=== PATIENT | female | born 1995 | race Caucasian/White ===

== ENCOUNTER → 2016-12-29 | Outpatient (CLI) | payer BC ==
--- OUTSIDE RECORDS SUMMARY | 2016-12-29 15:05 | XMS REPORT | Clinical Summary ---
Author Author User, [employer] Organization Belkis Piña DO, FACP Address Unknown Phone Allergies, Adverse Reactions, Alerts Allergy Name Reaction Description Start Date Severity Status Provider BACTRIM Critical Active Belkis Piña Conditions or Problems Problem Name Problem Code Onset Date Status Entry Date Provider Comment Standard Description Annotate HEMATOCHEZIA 578.1 Correction Belkis Piña Blood in stool RECTAL FISSURE 565.0 Active Belkis Piña Anal fissure ABDOMINAL PAIN, RIGHT UPPER QUADRANT 789.01 Active Belkis Piña Abdominal pain, right upper quadrant ACNE VULGARIS, FACIAL 706.1 Active Belkis Piña Other acne WELL WOMAN V70.0 Active Belkis Piña Routine general medical examination at a health care facility DYSMENORRHEA 625.3 Active Belkis Piña Dysmenorrhea Medication List Medication Instructions Start Date Stop Date Generic Name NDC Status Provider Patient Instruction PROVERA 10 MG TAB 1 po daily for 8 days MEDROXYPROGESTERONE ACETATE 40843043600 Active Belkis Piña SPRINTEC 28 0.25-35 MG-MCG TABS 1 po daily NORGESTIMATE-ETH ESTRADIOL 22828914000 Active Belkis Piña SEASONIQUE 0.15-0.03 &0.01 MG TABS 1 po daily at same time each day LEVONORGEST-ETH ESTRAD - 29607693071 No Longer Active Belkis Piña AVAR CLEANSER 10-5 % EMUL apply to affected area once daily SULFACETAMIDE SODIUM-SULFUR 55093458479 Active Harriett Bocanegra Vital Signs Date Name Value Unit Range Description blood pressure, diastolic - 8462-4 68 mm[Hg] BP martino blood pressure, systolic - 8480-6 110 mm[Hg] BP sys pulse rate E&M - 8867-4 66 /min Heart rate respiratory rate E&M - 9279-1 14 /min Resp rate weight E&M - 3141-9 148 [lb_av] Weight Measured blood pressure, diastolic - 8462-4 75 mm[Hg] BP martino blood pressure, systolic - 8480-6 138 mm[Hg] BP sys pulse rate E&M - 8867-4 78 /min Heart rate respiratory rate E&M - 9279-1 14 /min Resp rate temperature E&M 98.6 [degF] Body temperature weight E&M - 3141-9 144 [lb_av] Weight Measured blood pressure, diastolic - 8462-4 70 mm[Hg] BP martino blood pressure, systolic - 8480-6 128 mm[Hg] BP sys pulse rate E&M - 8867-4 64 /min Heart rate respiratory rate E&M - 9279-1 14 /min Resp rate temperature E&M 98.6 [degF] Body temperature weight E&M - 3141-9 142 [lb_av] Weight Measured Encounters Code Encounter Date Provider Facility CPT-07192 Ofc Vst, Est Level III 19:24:37 CDT Belkis Piña DO, FACP CPT-22502 Ofc Vst, New Level III 20:50:39 CDT Belkis Piña DO, CHARLINE Procedures Code Procedure Name Date Entry Date Standard Description CPT-38710 Preventive, Est, (18-39) 12:21:46 CDT
--- NOTE | 2016-12-29 19:57 | Diagnostic Imaging Report ---
OB ultrasound. INDICATION: survey. FINDINGS: There are no previous exams available for comparison. There is a single live fetus is cephalic presentation. heart motion is noted and a rate of 147 bpm is recorded. There are no abnormalities identified. The growth parameters are fairly uniform. The growth parameters are as follows: BPD: 4.33, 19 weeks 1 day. Head circumference: 17.15, 19 weeks 6 days. Abdominal circumference: 14.87, 20 weeks 1 day. Femur length: 2.99, 19 weeks 2 days. The estimated weight is 307 g +/- 45 g. The LMP percentile is 17%. The AUA percentile is 44% Placenta is posterior and along the uterine body on the right. There is no sign of a previa. The amniotic fluid volume is within normal limits. The cervix is identified and measures 3.4 cm in length. IMPRESSION: 1. There is a single live fetus of approximately 19 weeks 5 days gestation +/- 1.5 weeks. EDC is May 20, 2017. 2. There are no abnormalities identified. 3. The growth parameters are fairly uniform. Dictated by: Dictated on workstation # [id number]
== END ==
LOC: RAD 15:02
PROVIDERS: ATTEND Obstetrics & Gynecology
DX: Z36 Encounter for antenatal screening of mother (principal)
CPT/HCPCS: 76805

== ENCOUNTER 2017-05-25 06:43 | Inpatient (IN) | payer BC, MEDICAID ==
[2017-05-25] VITALS (67 sets, daily range): BP systolic 105–156; BP diastolic 61–110
[~2017-05-25] VITALS: Ht 167.6 cm; Wt 83.9 kg
[2017-05-25] MEDS ORDERED: MINERAL OIL CONCENTRATE 99.9% 15 ML UDC TOP PRN (07:00)
[2017-05-25 07:02] LABS: BILIRUBIN,URINE NEGATIVE (NEGATIVE); KETONES,URINE NEGATIVE (NEGATIVE); LEUKOCYTE ESTERASE ,URINE 2+ (NEGATIVE); NITRITE,URINE NEGATIVE (NEGATIVE); PH,URINE 7 (5-9); PROTEIN,URINE NEGATIVE (NEGATIVE); UROBILINOGEN,URINE NORMAL (NORMAL)
[2017-05-25 07:30] LABS: BASOPHILS % (AUTO) 0 % (0-10); EOSINOPHILS # (AUTO) 0.1 10^3/uL (0.0-0.3); EOSINOPHILS % (AUTO) 1 % (0-10); LYMPHOCYTES # (AUTO) 1.9 X 10^3 (1.0-4.0); LYMPHOCYTES % (AUTO) 16 % (12-44); MEAN CORPUSCULAR HEMOGLOBIN 33 PG (25-34); MEAN CORPUSCULAR HGB CONC 34 G/DL (32-36); MEAN CORPUSCULAR VOLUME 98 FL (80-99); MEAN PLATELET VOLUME 10.8 FL (7.4-10.4); MONOCYTES # (AUTO) 0.9 X 10^3 (0.0-1.0); MONOCYTES % (AUTO) 7 % (0-12); NEUTROPHILS # (AUTO) 9.1 X 10^3 (1.8-7.8); NEUTROPHILS % (AUTO) 76 % (42-75); PLATELET COUNT 238 10^3/uL (130-400); RED BLOOD COUNT 3.67 10^6/uL (4.35-5.85); RED CELL DISTRIBUTION WIDTH 12.3 % (10.0-14.5); WHITE BLOOD COUNT 12.1 10^3/uL (4.3-11.0)
[2017-05-25] MEDS ORDERED: OXYTOCIN/NORMAL SALINE 500 ML IV SCH ×2 (07:37→21:07)
[2017-05-25] MEDS: D5 LR IV SOLUTION 1,000 ML IV SCH ×2 (07:43→13:06)
[2017-05-25] MEDS ORDERED: PREN1TAB86 PO (08:58)
--- NOTE | 2017-05-25 09:42 | History & Physical-OB ---
OB - Chief Complaint & HPI Date/Time Date of Admission: Date of Admission: May 25, 2017 at 6:43 am Time Seen by Provider: 07:25 Chief Complaint/History Hx : 1 Hx Para: 0 Expected Date of Delivery: May 16, 2017 Gestational Age in Weeks: 41 Gestational Age in Days: 2 Indication for induction: post dates Admission Nurse Assessment Rev: Yes History of Labs A pos Antibody neg RNI RPR NR HBsAg NR HIV NR GC neg GBS neg Allergies and Home Medications Allergies Coded Allergies: sulfamethoxazole (Verified Allergy, Mild, RASH, 05/25/17) trimethoprim (Verified Allergy, Mild, RASH, 05/25/17) Home Medications Vit W-Ca,Fe,FA(<1 mg) 1 Each Tablet, 1 TAB PO DAILY, (Reported) OB - History Hx of Present Care: Yes Ultrasounds: Normal mid trimester US Obstetrical Complications: None Medical Complications: None Delivery History Adverse Rxn to Tranfusion: No Patient Past Medical History n/a Social History/Family History Alcohol Use: Denies Use Recreational Drug Use: No OB - Admission Exam Physical Exam Date Seen by Provider: May 25, 2017 Time Seen by Provider: 07:25 Vitals: Vital Signs 05/25/17 05/25/17 07:30 09:15 Temp 97.5 Pulse 83 Resp 20 B/P (MAP) 108/69 HEENT: NCAT Heart: Rhythm Normal Lungs: Clear Abdomen: Gravid Extremities: Normal Reflexes: Normal Cervical Dilatation: 3cm Effacement: 75% Station: -1 Membranes: Intact Heart Rate: 130's Accelerations: Accelerations Present Decelerations: No Decelerations Short Term Variability: Present [employer] Variability: Average (6-25) Contractions on Admission: 6-10 Minutes Apart Intensity: Mild Dee Scoring Tool (Modified) Dilation (cm): 3-4cm (2) Effacement (%): 51-79% (2) Descent/Station: -1,0 (2) Cervix Consistency: Soft (2) Cervix Position: Anterior (2) Subtract 1 point for: Nulliparity (-1) Dee Score: 9 Labs Laboratory Tests Test 05/25/17 06:50 05/25/17 07:12 Range/Units Urine Color YELLOW Urine Clarity CLEAR Urine pH 7 5-9 Urine Specific [place] 1.010 L 1.016-1.022 Urine Protein NEGATIVE NEGATIVE Urine Glucose (UA) NEGATIVE NEGATIVE Urine Ketones NEGATIVE NEGATIVE Urine Nitrite NEGATIVE NEGATIVE Urine Bilirubin NEGATIVE NEGATIVE Urine Urobilinogen NORMAL NORMAL MG/DL Urine Leukocyte Esterase 2+ H NEGATIVE Urine RBC (Auto) NEGATIVE NEGATIVE Urine RBC NONE /HPF Urine WBC 5-10 H /HPF Urine Squamous Epithelial Cells 2-5 /HPF Urine Crystals NONE /LPF Urine Bacteria FEW H /HPF Urine Casts NONE /LPF Urine Mucus SMALL H /LPF Urine Culture Indicated YES White Blood Count 12.1 H 4.3-11.0 10^3/uL Red Blood Count 3.67 L 4.35-5.85 10^6/uL Hemoglobin 12.2 11.5-16.0 G/DL Hematocrit 36 35-52 % Mean Corpuscular Volume 98 80-99 FL Mean Corpuscular Hemoglobin 33 25-34 PG Mean Corpuscular Hemoglobin Concent 34 32-36 G/DL Red Cell Distribution Width 12.3 10.0-14.5 % Platelet Count 238 130-400 10^3/uL Mean Platelet Volume 10.8 H 7.4-10.4 FL Neutrophils (%) (Auto) 76 H 42-75 % Lymphocytes (%) (Auto) 16 12-44 % Monocytes (%) (Auto) 7 0-12 % Eosinophils (%) (Auto) 1 0-10 % Basophils (%) (Auto) 0 0-10 % Neutrophils # (Auto) 9.1 H 1.8-7.8 X 10^3 Lymphocytes # (Auto) 1.9 1.0-4.0 X 10^3 Monocytes # (Auto) 0.9 0.0-1.0 X 10^3 Eosinophils # (Auto) 0.1 0.0-0.3 10^3/uL Basophils # (Auto) 0.0 0.0-0.1 10^3/uL OB - Assessment/Plan/Diagnosis Assessment Assessment: induction of labor Plan Plan: Induction Induction Method: AROM Other Plan AROM and Pitocin protocol Discharge Diagnosis Diagnosis: 21 yo @ 41.4 Post dates GBS neg PINA ANN DO May 25, 2017 9:42 am
[2017-05-25] MEDS ORDERED: SUFENTA 0.6MCG/ML BUPIVA 0.125 100 ML ONE (10:38)
[2017-05-25] MEDS ORDERED: LACTATED RINGERS 1,000 ML IV SCH (11:53)
[2017-05-25] MEDS ORDERED: NALOXONE 0.4 MG/ML 1 ML (NARCAN) VIAL IV PRN ×2 (12:00)
[2017-05-25] MEDS ORDERED: ONDANSETRON 4 MG/2 ML (SDV) Z0FRAN IV PRN (12:00)
[2017-05-25] MEDS ORDERED: METOCLOPRAMIDE INJ 10 MG/2 ML (REGLAN) IV PRN (12:00)
[2017-05-25] MEDS ORDERED: EPIDURAL (SUFENTA 0.6MCG/ML BUPIVA 0.125%) 100 ML BAG EPI SCH (12:00)
[2017-05-25] MEDS ORDERED: diphenhydrAMINE 50 MG/ML INJ (BENADRYL) IV PRN (12:00)
[2017-05-25] MEDS ORDERED: CATHETER FLUSH 10 ML SYR IV SCH ×2 (14:00→22:00)
--- NOTE | 2017-05-25 21:12 | OB Labor & Delivery Record ---
L&D History Date of Service Date of Service: May 25, 2017 History Expected Date of Delivery: May 16, 2017 Gestational Age in Weeks: 41 Hx : 1 Hx Para: 0 Complications Events: Routine care Operative Indications (Cesarea: N/A-Vaginal Delivery Intrapartal Events: Extnded Bradycardia, Ineffective Pushing L&D Stage1 Stage One Onset of Labor - Date: May 25, 2017 Monitors and Tracing Monitor Mode: External Heart Rate: 135 Station: -2 Short Term Variability: Present Presentation: Vertex Vital Signs VS - Last 72 Hours, by Label 05/25/17 05/25/17 05/25/17 05/25/17 06:58 07:30 07:45 08:00 Temp 99.1 97.5 Pulse 110 76 73 85 Resp 20 20 20 20 B/P (MAP) 127/80 123/74 117/74 112/63 05/25/17 05/25/17 05/25/17 05/25/17 08:15 08:30 08:45 09:00 Pulse 76 72 89 71 Resp 20 20 20 20 B/P (MAP) 114/73 115/71 117/78 114/68 05/25/17 05/25/17 05/25/17 05/25/17 09:15 09:30 09:45 10:00 Pulse 83 78 73 74 Resp 20 20 20 20 B/P (MAP) 108/69 105/66 109/67 114/71 05/25/17 05/25/17 05/25/17 05/25/17 10:15 10:30 10:45 11:00 Pulse 77 75 80 90 Resp 20 20 20 20 B/P (MAP) 109/63 108/62 118/75 115/65 05/25/17 05/25/17 05/25/17 05/25/17 11:15 11:30 11:45 11:50 Pulse 86 93 83 85 Resp 20 20 20 20 B/P (MAP) 128/75 120/73 133/80 133/76 Pulse Ox 99 99 O2 Delivery Room Air Room Air 05/25/17 05/25/17 05/25/17 05/25/17 11:55 12:00 12:05 12:10 Pulse 81 81 90 80 Resp 20 20 20 20 B/P (MAP) 136/83 130/64 122/71 129/70 Pulse Ox 97 98 98 99 O2 Delivery Room Air Room Air Room Air Room Air 05/25/17 05/25/17 05/25/17 05/25/17 12:15 12:20 12:25 12:30 Pulse 78 85 77 81 Resp 20 20 20 20 B/P (MAP) 123/64 124/74 125/68 120/68 Pulse Ox 99 99 99 99 O2 Delivery Room Air Room Air Room Air Room Air 05/25/17 05/25/17 05/25/17 05/25/17 12:35 12:45 13:00 13:15 Pulse 83 78 70 69 Resp 20 20 20 20 B/P (MAP) 123/69 129/78 129/75 133/73 Pulse Ox 99 100 100 100 O2 Delivery Room Air Non Rebreather Non Rebreather Non Rebreather O2 Flow Rate 15.00 15.00 15.00 05/25/17 05/25/17 05/25/17 05/25/17 13:30 13:45 14:00 14:15 Pulse 67 74 71 82 Resp 20 20 20 20 B/P (MAP) 137/76 133/80 118/88 119/81 Pulse Ox 100 100 100 100 O2 Delivery Non Rebreather Non Rebreather Non Rebreather Non Rebreather O2 Flow Rate 15.00 15.00 15.00 15.00 05/25/17 05/25/17 05/25/17 05/25/17 14:45 15:00 15:30 15:45 Pulse 71 77 77 70 Resp 20 20 20 20 B/P (MAP) 143/83 140/85 139/76 136/73 Pulse Ox 100 100 100 100 O2 Delivery Non Rebreather Non Rebreather Room Air Room Air O2 Flow Rate 15.00 15.00 05/25/17 05/25/17 05/25/17 05/25/17 16:00 16:15 16:35 16:50 Pulse 88 69 70 91 Resp 20 20 18 18 B/P (MAP) 132/92 138/82 144/91 140/90 Pulse Ox 99 99 99 100 O2 Delivery Room Air Room Air Room Air Room Air 05/25/17 05/25/17 05/25/17 05/25/17 17:05 17:20 17:35 17:50 Pulse 77 85 92 74 Resp 18 20 20 20 B/P (MAP) 126/68 152/110 112/65 130/70 Pulse Ox 100 O2 Delivery Room Air Room Air Room Air Room Air 05/25/17 05/25/17 05/25/17 05/25/17 18:05 18:20 18:35 18:50 Pulse 75 73 80 80 Resp 20 18 18 18 B/P (MAP) 133/65 127/65 120/68 117/61 O2 Delivery Room Air Room Air Room Air Room Air 05/25/17 05/25/17 19:05 19:20 Pulse 79 89 Resp 18 18 B/P (MAP) 124/70 156/80 O2 Delivery Room Air Room Air Rupture of Membranes Spontaneous Ruture of Membrane: No Amniotic Membrane Rupture Time: 07 Amniotic Membrane Fluid Desc.: Clear Vaginal Bleeding Description: Normal Show Induction/Anesthesia Epidural Cath Placement - Time: 1138 Progress/Notes Pitocin was initially used to augment labor, however after a prolonged deceleration into the 70s pitocin was discontinued, she progress the remainder of first stage spontaneously, with a adequate contraction pattern. Epidural was obtained . L&D Stage2 Stage Two Stage II Date: May 25, 2017 Monitors and Tracing Monitor Mode: External Heart Rate: 135 Monitor Decelerations: Variable [place] Variability: Average (6-10) Short Term Variability: Present Position: Right Occiput Anterior Presentation: Vertex Cord Descript/Complications Cord Vessel Description: 3 Vessels Delivery Type Infant Delivery Method: Low Vacuum Extraction Anterior Shoulder: Right Episiotomy/Perineal Laceration Laceraction(s)/Extensions: Yes Episiotomy Description: Right Mediolateral Degree (describe repair) Right mediolateral was repaired using 30 and 20 vicryl suture Condition of Infant Delivery 1 minute Comment: 8 5 minute Comment: 9 Notes live male weight 6lbs 12 oz Condition of Infant Condition of Infant: Living Exam: No Observed Abnormalities Resuscitation Resuscitation: N/A - Spontaneous Resp L&D Stage3 Stage Three Stage III Date: May 25, 2017 Pictocin Pitocin Administration mu/min: 10 Pitocin ml/hr: 10 Pitocin Administration Comment: PITOCIN STARTED wide open at delivery of placenta Placenta Delivery Placenta Delivery: Spontaneous Delivery Summary Summary blood loss >1000ml: No Vaginal blood loss >500ml: No 350 Attending at delivery: Pina Ann DO Condition of Delivery Examined: Cervix Examined, Uterus Explored Post Hemorrhage: No Condition of Mother stable Condition of (s) stable PINA ANN DO May 25, 2017 9:12 pm
[2017-05-25] MEDS ORDERED: TETANUS,DIPTH,PERTUSS P/F (BOOSTRIX) 0.5 ML VIAL IM ONE (21:15)
[2017-05-25] MEDS ORDERED: DIBUCAINE (NUPERCAINAL) 1% OINT 30 GM TOP PRN (21:15)
[2017-05-25] MEDS ORDERED: WITCH HAZEL(TUCKS) 40 EA JAR TOP PRN (21:15)
[2017-05-25] MEDS ORDERED: APAP 300 MG/CODEINE 30 MG (TYLENOL #3) TAB PO PRN (21:15)
[2017-05-25] MEDS ORDERED: MEASLES,MUMPS,RUBELLA 1 EA INJ SQ ONE (21:15)
[2017-05-25] MEDS ORDERED: BENZOCAINE/MENTHOL (DERMOPLAST) 56 ML CAN TP PRN (21:15)
--- NOTE | 2017-05-25 21:15 | Discharge Inst-Women's Service ---
Discharge Inst-Women's Serv Depart Medication/Instructions New, Converted or Re-Newed RX: RX on Chart Consults/Follow Up Additional Follow Up: Yes Orders/Referrals Dr. Ann in 6 weeks Activity Activity: Activity as Tolerated Driving Instructions: No Driving for 1 Week NO SMOKING: NO SMOKING Nothing Inside Vagina: No Douching, No [place], No Tampons Diet Discharge Diet: No Restrictions Symptoms to Report to : Bleeding Excessive, Pain Increased, Fever Over 101 Degrees F, Vaginal Bleeding Increase, Questions/Concerns For Any Problems or Questions: Contact Your Physician Skin/Wound Care Bathing Instructions: Shower (x 2 weeks) PINA ANN DO May 25, 2017 9:15 pm
[2017-05-25] MEDS ORDERED: BENZ56AE2 TP (21:17)
[2017-05-25] MEDS ORDERED: IBUP-1773 PO (21:17)
[2017-05-25] MEDS ORDERED: ACET1TAB43 PO (21:17)
[2017-05-25] MEDS ORDERED: DOCU100C37 PO (21:17)
[2017-05-25] MEDS: IBUPROFEN 600 MG (MOTRIN) TAB PO SCH (21:26)
[2017-05-26 03:55] VITALS: BP 126/73
[2017-05-26] MEDS: IBUPROFEN 600 MG (MOTRIN) TAB PO SCH ×3 (03:55→20:33)
[2017-05-26 07:16] LABS: BASOPHILS % (AUTO) 0 % (0-10); EOSINOPHILS # (AUTO) 0.1 10^3/uL (0.0-0.3); EOSINOPHILS % (AUTO) 1 % (0-10); LYMPHOCYTES # (AUTO) 1.8 X 10^3 (1.0-4.0); LYMPHOCYTES % (AUTO) 11 % (12-44); MEAN CORPUSCULAR HEMOGLOBIN 33 PG (25-34); MEAN CORPUSCULAR HGB CONC 33 G/DL (32-36); MEAN CORPUSCULAR VOLUME 99 FL (80-99); MEAN PLATELET VOLUME 10.8 FL (7.4-10.4); MONOCYTES # (AUTO) 1.2 X 10^3 (0.0-1.0); MONOCYTES % (AUTO) 7 % (0-12); NEUTROPHILS # (AUTO) 13.8 X 10^3 (1.8-7.8); NEUTROPHILS % (AUTO) 81 % (42-75); PLATELET COUNT 196 10^3/uL (130-400); RED BLOOD COUNT 3.26 10^6/uL (4.35-5.85); RED CELL DISTRIBUTION WIDTH 12.4 % (10.0-14.5)
[2017-05-26] MEDS ORDERED: DOCUSATE CALCIUM 240 MG (SURFAK) CAP PO SCH (09:00)
[2017-05-26] MEDS: DOCUSATE SODIUM 100 MG (COLACE) CAP PO SCH ×2 (09:17→20:33)
[2017-05-26] MEDS: PRENATAL VITAMIN 1 EA TAB PO SCH (09:17)
[2017-05-26] MEDS: FERROUS SULF 325 MG (IRON) TAB PO SCH (09:17)
[2017-05-26 09:25] VITALS: BP 125/65
--- NOTE | 2017-05-26 09:51 | Progress Note-Standard ---
Standard Progress Note Progress Notes/Assess & Plan Date Seen by Provider: May 26, 2017 Time Seen by Provider: 09:15 Progress/Assessment & Plan Patient is doing well day 1 vacuum-assisted vaginal delivery. She reports perineal discomfort as well as cramping however overall is doing very well. She reports lochia is moderate to light. She is ambulating and voiding freely Vital Sign - Last 24 Hours 05/25/17 05/25/17 05/25/17 05/25/17 10:00 10:15 10:30 10:45 Pulse 74 77 75 80 Resp 20 20 20 20 B/P (MAP) 114/71 109/63 108/62 118/75 05/25/17 05/25/17 05/25/17 05/25/17 11:00 11:15 11:30 11:45 Pulse 90 86 93 83 Resp 20 20 20 20 B/P (MAP) 115/65 128/75 120/73 133/80 Pulse Ox 99 O2 Delivery Room Air 05/25/17 05/25/17 05/25/17 05/25/17 11:50 11:55 12:00 12:05 Pulse 85 81 81 90 Resp 20 20 20 20 B/P (MAP) 133/76 136/83 130/64 122/71 Pulse Ox 99 97 98 98 O2 Delivery Room Air Room Air Room Air Room Air 05/25/17 05/25/17 05/25/17 05/25/17 12:10 12:15 12:20 12:25 Pulse 80 78 85 77 Resp 20 20 20 20 B/P (MAP) 129/70 123/64 124/74 125/68 Pulse Ox 99 99 99 99 O2 Delivery Room Air Room Air Room Air Room Air 05/25/17 05/25/17 05/25/17 05/25/17 12:30 12:35 12:45 13:00 Pulse 81 83 78 70 Resp 20 20 20 20 B/P (MAP) 120/68 123/69 129/78 129/75 Pulse Ox 99 99 100 100 O2 Delivery Room Air Room Air Non Rebreather Non Rebreather O2 Flow Rate 15.00 15.00 05/25/17 05/25/17 05/25/17 05/25/17 13:15 13:30 13:45 14:00 Pulse 69 67 74 71 Resp 20 20 20 20 B/P (MAP) 133/73 137/76 133/80 118/88 Pulse Ox 100 100 100 100 O2 Delivery Non Rebreather Non Rebreather Non Rebreather Non Rebreather O2 Flow Rate 15.00 15.00 15.00 15.00 05/25/17 05/25/17 05/25/17 05/25/17 14:15 14:45 15:00 15:30 Pulse 82 71 77 77 Resp 20 20 20 20 B/P (MAP) 119/81 143/83 140/85 139/76 Pulse Ox 100 100 100 100 O2 Delivery Non Rebreather Non Rebreather Non Rebreather Room Air O2 Flow Rate 15.00 15.00 15.00 05/25/17 05/25/17 05/25/17 05/25/17 15:45 16:00 16:15 16:35 Pulse 70 88 69 70 Resp 20 20 20 18 B/P (MAP) 136/73 132/92 138/82 144/91 Pulse Ox 100 99 99 99 O2 Delivery Room Air Room Air Room Air Room Air 05/25/17 05/25/17 05/25/17 05/25/17 16:50 17:05 17:20 17:35 Pulse 91 77 85 92 Resp 18 18 20 20 B/P (MAP) 140/90 126/68 152/110 112/65 Pulse Ox 100 100 O2 Delivery Room Air Room Air Room Air Room Air 05/25/17 05/25/17 05/25/17 05/25/17 17:50 18:05 18:20 18:35 Pulse 74 75 73 80 Resp 20 20 18 18 B/P (MAP) 130/70 133/65 127/65 120/68 O2 Delivery Room Air Room Air Room Air Room Air 05/25/17 05/25/17 05/25/17 05/25/17 18:50 19:05 19:20 19:32 Temp 99.0 Pulse 80 79 89 Resp 18 18 18 B/P (MAP) 117/61 124/70 156/80 O2 Delivery Room Air Room Air Room Air 05/25/17 05/25/17 05/25/17 05/25/17 19:49 20:05 20:20 20:20 Temp 101.0 100.0 Pulse 94 90 85 Resp 18 18 18 B/P (MAP) 124/78 125/62 127/64 O2 Delivery Room Air Room Air Room Air 05/25/17 05/25/17 05/25/17 05/25/17 20:35 20:49 21:04 21:20 Temp 99.6 99.3 Pulse 130 103 87 104 Resp 18 18 18 18 B/P (MAP) 135/72 114/63 118/63 117/71 O2 Delivery Room Air Room Air Room Air Room Air 05/25/17 05/25/17 05/25/17 05/25/17 21:35 21:53 22:04 22:19 Temp 98.9 99.0 Pulse 96 103 81 78 Resp 18 18 18 18 B/P (MAP) 115/78 121/89 113/68 118/73 O2 Delivery Room Air Room Air Room Air Room Air 05/25/17 05/25/17 05/26/17 22:34 23:00 03:55 Temp 98.1 97.2 Pulse 82 75 98 Resp 18 B/P (MAP) 121/73 118/71 126/73 Pulse Ox 97 98 O2 Delivery Room Air Room Air Room Air Intake and Output 05/25/17 05/25/17 05/26/17 15:00 23:00 07:00 Intake Total 2000 ml 500 ml 500 ml Balance 2000 ml 500 ml 500 ml Uterine fundus firm and palpated below the umbilicus Laboratory Tests Test 05/26/17 07:14 Range/Units White Blood Count 17.0 H 4.3-11.0 10^3/uL Red Blood Count 3.26 L 4.35-5.85 10^6/uL Hemoglobin 10.7 L 11.5-16.0 G/DL Hematocrit 32 L 35-52 % Mean Corpuscular Volume 99 80-99 FL Mean Corpuscular Hemoglobin 33 25-34 PG Mean Corpuscular Hemoglobin Concent 33 32-36 G/DL Red Cell Distribution Width 12.4 10.0-14.5 % Platelet Count 196 130-400 10^3/uL Mean Platelet Volume 10.8 H 7.4-10.4 FL Neutrophils (%) (Auto) 81 H 42-75 % Lymphocytes (%) (Auto) 11 L 12-44 % Monocytes (%) (Auto) 7 0-12 % Eosinophils (%) (Auto) 1 0-10 % Basophils (%) (Auto) 0 0-10 % Neutrophils # (Auto) 13.8 H 1.8-7.8 X 10^3 Lymphocytes # (Auto) 1.8 1.0-4.0 X 10^3 Monocytes # (Auto) 1.2 H 0.0-1.0 X 10^3 Eosinophils # (Auto) 0.1 0.0-0.3 10^3/uL Basophils # (Auto) 0.0 0.0-0.1 10^3/uL Diagnosis: day one vacuum-assisted vaginal delivery Rubella nonimmune Plan: MMR vaccine to be given before discharge Continue routine care and anticipate discharge tomorrow PINA ANN DO May 26, 2017 9:51 am
[2017-05-26 12:00] VITALS: BP 113/70
[2017-05-26 16:00] VITALS: BP 121/77
--- NOTE | 2017-05-26 17:43 | Anesthesia-Regional Post-Op ---
Regional Patient Condition Mental Status: Alert, Oriented x3 Circulation: Same as Pre-Op Headache: Absent Sensation: Full Recovery Motor Block: Absent Post Op Complications Complications None Follow Up Care/Instructions Patient Instructions None needed. Anesthesia/Patient Condition Patient is doing well, no complaints, stable vital signs, no apparent adverse anesthesia problems. KAYLEIGH DONNELLY DO May 26, 2017 17:43
[2017-05-26 20:30] VITALS: BP 117/76
[2017-05-27] MEDS: IBUPROFEN 600 MG (MOTRIN) TAB PO SCH ×2 (03:19→08:44)
[2017-05-27 03:20] VITALS: BP 90/52
[2017-05-27] MEDS: DOCUSATE SODIUM 100 MG (COLACE) CAP PO SCH (08:44)
[2017-05-27] MEDS: FERROUS SULF 325 MG (IRON) TAB PO SCH (08:44)
[2017-05-27] MEDS: PRENATAL VITAMIN 1 EA TAB PO SCH (08:44)
[2017-05-27 09:00] VITALS: BP 104/70
--- NOTE | 2017-05-27 09:17 | Progress Note-Standard ---
Standard Progress Note Progress Notes/Assess & Plan Date Seen by Provider: May 27, 2017 Time Seen by Provider: 09:00 Progress/Assessment & Plan Patient is doing well day 2 vacuum-assisted vaginal delivery. She reports perineal discomfort as well as cramping however overall is doing very well. She reports lochia is moderate to light. She is ambulating and voiding freely Vital Sign - Last 24 Hours 05/26/17 05/26/17 05/26/17 05/26/17 09:25 12:00 16:00 20:30 Temp 97.6 98.1 98.0 97.8 Pulse 91 98 65 67 Resp 20 20 20 18 B/P (MAP) 125/65 113/70 121/77 117/76 Pulse Ox 99 99 99 99 O2 Delivery Room Air Room Air Room Air 05/27/17 03:20 Temp 98.6 Pulse 85 Resp 18 B/P (MAP) 90/52 Pulse Ox 99 O2 Delivery Room Air Uterine fundus firm and palpated below the umbilicus Diagnosis: day two vacuum-assisted vaginal delivery Rubella nonimmune Plan: MMR vaccine to be given before discharge Continue routine care and anticipate discharge today PINA ANN DO May 27, 2017 9:17 am
[2017-05-27] MEDS ORDERED: MEASLES,MUMPS,RUBELLA 1 EA INJ ONE (13:55)
== END 2017-05-27 15:15 | disposition home or self-care (01) | DRG 775 ==
LOC: LDRP 06:43
PROVIDERS: ADMIT Obstetrics & Gynecology; ATTEND Obstetrics & Gynecology
PROC: 0W8NXZZ Division of Female Perineum, External Approach (ICD-10-PCS; principal; 2017-05-25)
PROC: 10D07Z3 Extraction of Products of Conception, Low Forceps, Via Natural or Artificial Opening (ICD-10-PCS; 2017-05-25)
PROC: 3E033VJ Introduction of Other Hormone into Peripheral Vein, Percutaneous Approach (ICD-10-PCS; 2017-05-25)
DX: O48.0 Post-term pregnancy (principal); Z3A.41 41 weeks gestation of pregnancy; Z23 Encounter for immunization
CPT/HCPCS: 36415; 81000; 85025; 86850; 86900; 86901; 87088; 90707

== ENCOUNTER 2017-06-11 16:40 | Emergency (ER) | payer BC, MEDICAID ==
[~2017-06-11] VITALS: Ht 167.6 cm; Wt 77.1 kg
[~2017-06-11 16:40] MED LIST: ACET1TAB43 PO; BENZ56AE2 TP; DOCU100C37 PO; IBUP-1773 PO; PREN1TAB86 PO
--- NOTE | 2017-06-11 17:54 | ED GI ---
General Chief Complaint: Abdominal/GI Problems Stated Complaint: CONSTIPATION Nursing Triage Note: c/o inabilitiy to have a BM. Reports passing "small turds" early last week but no significant BM since mid-last week. Sepsis Screen: No Definite Risk Source of Information: Patient, Family Exam Limitations: No Limitations History of Present Illness Time Seen By Provider: 17:53 Initial Comments 21-year-old senile patient presents to the emergency department with complaints of constipation. Patient states she is able pass small amounts of stool last week but has not had a significant BM this week. Also states she has not urinated since late last night because she is afraid that it will hurt when she does. Patient delivered vaginally on May 25. Sees Dr. Ann. States she has been using the Tylenol with codeine at the last 2 days due to the constipation. She thought that this would help her be able to go to the bathroom. Patient is breast-feeding. Timing/Duration: 1 Week, Getting Worse Severity/Quality: Aching, Cramping Location: Generalized Abdomen Radiation: No Radiation Modifying Factors: Worsens With Other (worse with attmepting to have a BM) Allergies and Home Medications Allergies Coded Allergies: sulfamethoxazole (Verified Allergy, Mild, RASH, 05/25/17) trimethoprim (Verified Allergy, Mild, RASH, 05/25/17) Home Medications Acetaminophen with Codeine 1 Each Tablet, 1-2 TAB PO Q4H PRN for PAIN-MODERATE, #50 Prescribed by: PINA ANN on 05/25/172116 Benzocaine/Menthol 56 Gm Aerosol, 56 ML TP UD PRN for PAIN- SEE INSTRUCTIONS, #1 Prescribed by: PINA ANN on 05/25/172116 Cefdinir 300 Mg Capsule, 300 MG PO BID, #14 Ref 0 Prescribed by: SELENE HAYES on 06/11/17 1853 Docusate Sodium 100 Mg Capsule, 100 MG PO BID PRN for CONSTIPATION-1ST LINE, #40 Prescribed by: PINA ANN on 05/25/172116 Ibuprofen 600 Mg Tablet, 600 MG PO Q6H, #80 Prescribed by: PINA ANN on 05/25/172116 Polyethylene Glycol 3350 119 Gm Powder, 119 GM PO UD, #1 Ref 0 17 g mixed with 8 oz of fluids BID x3d, then qhs as needed for constipation. Prescribed by: SELENE HAYES on 06/11/17 182 Vit W-Ca,Fe,FA(<1 mg) 1 Each Tablet, 1 TAB PO DAILY, (Reported) Review of Systems Constitutional: No chills, No fever, No malaise Respiratory: No Symptoms Reported Cardiovascular: No Symptoms Reported Gastrointestinal: See HPI, Abdomen Distended, Denies Abdominal Pain, Constipated, Denies Diarrhea, Denies Vomiting Genitourinary: Denies Burning, Denies Frequency, Denies Flank Pain, Denies Hematuria, Denies Pain Musculoskeletal: No back pain Skin: no symptoms reported Psychiatric/Neurological: No Symptoms Reported All Other Systems Reviewed Negative Unless Noted: Yes (Negative excepted noted.) Past Qlyvkla-Jbvatk-Qptmbo Hx Patient Social History Alcohol Use: Denies Use Recreational Drug Use: No Smoking Status: Never a Smoker Recent Foreign Travel: No Contact w/Someone Who Travel: No Recent Infectious Disease Expo: No Recent Hopitalizations: No Seasonal Allergies Seasonal Allergies: No Surgeries HX Surgeries: No Respiratory Hx Respiratory Disorders: No Cardiovascular Hx Cardiac Disorders: No Neurological Hx Neurological Disorders: No Genitourinary Hx Genitourinary Disorders: No Gastrointestinal Hx Gastrointestinal Disorders: Yes Gastrointestinal Disorders: Ulcer Blood Transfusions Adverse Reaction to a Blood Tr: No Reviewed Nursing Assessment Reviewed/Agree w Nursing PMH: Yes Family Medical History Significant Family History: No Pertinent Family Hx Family Medial History: FH: stroke GRANDMOTHER M GRANDMOTHER P Hypertension GRANDMOTHER P Physical Exam Vital Signs VS - Last 72 Hours, by Label 06/11/17 06/11/17 17:21 19:16 Temp 98.1 98.1 Pulse 70 Resp 16 B/P (MAP) 117/101 Pulse Ox 98 98 O2 Delivery Room Air Capillary Refill : Less Than 3 Seconds General Appearance: WD/WN, no apparent distress HEENT: PERRL/EOMI, pharynx normal Neck: supple, normal inspection Respiratory: lungs clear, normal breath sounds, no respiratory distress, no accessory muscle use Cardiovascular: normal peripheral pulses, regular rate, rhythm, no edema, no murmur Gastrointestinal: normal bowel sounds, non tender, soft, distended (mildly distended but soft. descending colon palpable. ) Extremities: no pedal edema, normal capillary refill Neurologic/Psychiatric: alert, normal mood/affect, oriented x 3 Skin: normal color, warm/dry Progress/Results/Core Measures Results/Orders Lab Results Laboratory Tests Test 06/11/17 18:17 Range/Units Urine Color YELLOW Urine Clarity CLEAR Urine pH 6 5-9 Urine Specific [place] 1.015 L 1.016-1.022 Urine Protein 1+ H NEGATIVE Urine Glucose (UA) NEGATIVE NEGATIVE Urine Ketones NEGATIVE NEGATIVE Urine Nitrite NEGATIVE NEGATIVE Urine Bilirubin NEGATIVE NEGATIVE Urine Urobilinogen NORMAL NORMAL MG/DL Urine Leukocyte Esterase 3+ H NEGATIVE Urine RBC (Auto) 5+ H NEGATIVE Urine RBC 50-100 H /HPF Urine WBC 50-100 H /HPF Urine Squamous Epithelial Cells 2-5 /HPF Urine Crystals NONE /LPF Urine Bacteria RARE /HPF Urine Casts NONE /LPF Urine Mucus NEGATIVE /LPF Urine Culture Indicated YES Micro Results Microbiology 06/11/17 Urine Culture - Final, Complete Staphylococcus Aureus My Orders Orders - SELENE HAYES Abdomen, Flat & Upright/Decub (06/11/17 17:37) Ua Culture If Indicated (06/11/17 18:14) Urine Culture (06/11/17 18:17) Cephalexin Capsule (Keflex Capsule) (06/11/17 19:00) Methylnaltrexone Injection (Relistor Inj (06/11/17 19:00) Im/Sub-Q Injection Non-Ab Ed (06/11/17 ) Vital Signs/I&O Vital Sign - Last 12Hours 06/11/17 06/11/17 17:21 19:16 Temp 98.1 98.1 Pulse 70 Resp 16 B/P (MAP) 117/101 Pulse Ox 98 98 O2 Delivery Room Air Blood Pressure Mean: 106 Diagnostic Imaging Diagonstic Imaging: Xray Plain Films/CT/US/NM/MRI: abdomen Comments FINDINGS: Lungs are clear. There is no intraperitoneal free air. Bowel gas pattern is normal. There is a large amount of stool in the colon. IMPRESSION: Constipation. Dictated by: Dictated on workstation # [id number] Reviewed: Reviewed by Me (radiology report reviewed by me) Departure Communication Progress Notes laboratory and diagnostic findings discussed with the patient. patient given 1 dose of relistor in the ED. plan for dsch to home. patient given a rx for cefdinir and miralax. Impression Impression: Primary Impression: Urinary tract infection Qualified Codes: N30.01 - Acute cystitis with hematuria Additional Impression: Constipation due to pain medication Disposition: HOME, SELF-CARE Condition: Improved Departure-Patient Inst. Decision time for Depature: 18:26 Referrals: PINA ANN DO (PCP) Primary Care Physician Patient Instructions: Constipation, Adult (DC), Urinary Tract Infection, Adult (DC) Add. Discharge Instructions: All discharge instructions reviewed with patient and/or family. Voiced understanding. MiraLAX 17 g mixed with 8 ounces of fluids by mouth twice daily for 3 days, then at bedtime as needed for constipation. Colace stool softener 100 mg by mouth 2-3 times daily as needed for constipation. Drink plenty of fluids. Use narcotics for breakthrough pain only. Follow-up with Dr. Ann as previously scheduled. Return to the emergency department immediately for worsened pain, abdominal swelling, fever, inability to urinate, vomiting, or any other concerns. Scripts Cefdinir (Cefdinir) 300 Mg Capsule 300 MG PO BID, #14 CAP 0 Refills Prov: SELENE HAYES 06/11/17 Polyethylene Glycol 3350 (Miralax) 119 Gm Powder 119 GM PO UD, #1 EA 0 Refills 17 g mixed with 8 oz of fluids BID x3d, then qhs as needed for constipation. Prov: SELENE HAYES 06/11/17 SELENE HAYES Jun 11, 2017 5:53 pm
--- NOTE | 2017-06-11 17:55 | Diagnostic Imaging Report ---
INDICATION: Urinary retention. PA chest, supine and upright abdominal images were obtained. FINDINGS: Lungs are clear. There is no intraperitoneal free air. Bowel gas pattern is normal. There is a large amount of stool in the colon. IMPRESSION: Constipation. Dictated by: Dictated on workstation # [id number]
[2017-06-11 18:25] LABS: BILIRUBIN,URINE NEGATIVE (NEGATIVE); KETONES,URINE NEGATIVE (NEGATIVE); LEUKOCYTE ESTERASE ,URINE 3+ (NEGATIVE); NITRITE,URINE NEGATIVE (NEGATIVE); PH,URINE 6 (5-9); PROTEIN,URINE 1+ (NEGATIVE); UROBILINOGEN,URINE NORMAL (NORMAL)
[2017-06-11] MEDS ORDERED: POLY119P5 PO (18:29)
[2017-06-11 18:37] LABS: WBC,URINE 50-100 /HPF
[2017-06-11] MEDS ORDERED: CEFD300C3 PO (18:53)
[2017-06-11] MEDS ORDERED: CEPHALEXIN 250 MG (KEFLEX) CAP PO ONE (19:00)
[2017-06-11] MEDS ORDERED: METHYLNALTREXONE 12 MG/0.6 ML (RELISTOR) VIAL SQ ONE (19:00)
[2017-06-11 19:16] VITALS: BP 118/90
--- OUTSIDE RECORDS SUMMARY | 2017-06-12 03:48 | XMS REPORT | Clinical Summary ---
Author Author User, [employer] Organization Belkis Piña DO, FACP Address Unknown [...] medical examination at a health care facility Medication List Medication Instructions Start Date Stop Date Generic Name NDC Status Provider Patient Instruction SEASONIQUE 0.15-0.03 &0.01 MG TABS 1 po daily at same time each day LEVONORGEST-ETH ESTRAD -DAY 82331319147 Active Belkis Piña AVAR CLEANSER 10-5 % EMUL apply to affected area once daily SULFACETAMIDE SODIUM-SULFUR 99393567916 Active Harriett Bocanegra Vital Signs Date Name Value Unit Range Description blood pressure, diastolic - 8462-4 75 mm[Hg] [...] Measured Encounters Code Encounter Date Provider Facility CPT-20761 Ofc Vst, New Level III 20:50:39 CDT Belkis Piña DO, FACP Procedures Code Procedure Name Date Entry Date Standard Description CPT-61862 Preventive, Est, (18-39) 12:21:46 CDT
== END 2017-06-11 19:16 | disposition home or self-care (01) ==
LOC: EDUNIT# 16:40 → ER 16:42
DX: O86.20 Urinary tract infection following delivery, unspecified (principal); O99.63 Diseases of the digestive system complicating the puerperium; K59.03 Drug induced constipation; T39.1X5A Adverse effect of 4-Aminophenol derivatives, initial encounter; Z87.19 Personal history of other diseases of the digestive system
CPT/HCPCS: 74020; 81000; 87077; 87088; 87186; 96372; 99283

== ENCOUNTER → 2019-09-25 | Outpatient (CLI) | payer BC, MEDICAID ==
[~2019-09-25] MED LIST changes: +CEFD300C3 PO; +POLY119P5 PO
--- NOTE | 2019-09-25 16:36 | Diagnostic Imaging Report ---
INDICATION: patient, survey. TECHNIQUE: Multiple real-time grayscale images were obtained over the gravid uterus. COMPARISON: None during this . FINDINGS: A single live intrauterine fetus is seen in cephalic presentation. The fetus measured 20 weeks 4 days in size by composite measurements. Sonographic EDC is 02/08/2020. Amniotic fluid is qualitatively normal. The placenta is grade I and fundal with no evidence of previa. heart rate is 136 BPM. Cervical length is normal at 3.4 cm. survey showed normal-appearing kidneys and bladder and spine. Study is limited, cord and cord insertion were not well seen. head structures and four-chamber heart view were also not well seen. Biometrical measurements are as follows: Biparietal 4.61 cm, age 20 weeks 0 days. Head circumference 18.26 cm, age 20 weeks 5 days. Abdominal circumference 14.74 cm, age 20 weeks 1 days. Femur length 3.46 cm, age 21 weeks 0 days. Sonographic estimate age: 20 weeks 4 days. Sonographic estimated date of delivery: 02/08/2020. Estimated Weight: 353 gm (+/- 52 gm). LMP percentile: 62%. heart rate: 136 beats per minute. number: 1 of 1. IMPRESSION: Single live intrauterine fetus measuring 20 weeks 4 days in size as described above. survey is somewhat limited secondary to position, consider limited follow-up study as clinically warranted. Dictated by: Dictated on workstation # [id number]
== END ==
LOC: RAD 15:29
PROVIDERS: ATTEND Nurse Practitioner Women's Health
DX: Z34.92 Encounter for supervision of normal pregnancy, unspecified, second trimester (principal); Z3A.20 20 weeks gestation of pregnancy
CPT/HCPCS: 76805

== ENCOUNTER 2020-02-11 13:49 | Outpatient (CLI) | payer BC ==
[~2020-02-11] VITALS: Ht 170 cm; Wt 88.6 kg
[2020-02-11] MEDS ORDERED: PREN-8 PO (13:55)
[2020-02-13] MEDS ORDERED: HYDR-83 PO (08:25)
[2020-02-13] MEDS ORDERED: IBUP-844 PO (08:25)
[2020-02-13] MEDS ORDERED: DCS100C PO (08:25)
== END 2020-02-11 14:13 | disposition home or self-care (01) ==
LOC: PREOP 13:49
PROVIDERS: ATTEND Obstetrics & Gynecology
DX: Z01.818 Encounter for other preprocedural examination (principal)

== ENCOUNTER 2020-02-12 09:58 | Inpatient (IN) | payer BC ==
[~2020-02-12] VITALS: Ht 170.2 cm; Wt 89.6 kg
[2020-02-12] VITALS (11 sets, daily range): BP systolic 107–124; BP diastolic 64–86
[~2020-02-12 09:58] MED LIST changes: +PREN-8 PO
--- NOTE | 2020-02-12 10:10 | NUR ---
CYNTHIA RHODES presented to unit via ambulation, accompanied by ,for scheduled c/s for breech presentation. Pt. weighed, gowned, voided, and to bed. EFHM and TOCO applied, VS taken. Pt. oriented to bed controls, call light, TV, heat, and A/C controls.
[2020-02-12] MEDS ORDERED: CITRIC ACID/SOB CIT (BICITRA) 30 ML UDC PO ONE (10:30)
[2020-02-12] MEDS ORDERED: METOCLOPRAMIDE INJ 10 MG/2 ML (REGLAN) IV ONE (10:30)
[2020-02-12] MEDS ORDERED: ceFAZolin 2 GM IV Premixed 50 ML IV ONE ×2 (10:30→11:30)
[2020-02-12] MEDS ORDERED: FAMOTIDINE 20MG/2ML IV (PEPCID) IV ONE (10:30)
--- NOTE | 2020-02-12 10:30 | NUR ---
MRSA SWAB OBTAINED.
--- NOTE | 2020-02-12 10:34 | NUR ---
VERÓNICA NOONAN CUSTOMER SUCCESS INTERN IN TO SEE PT. EFM APPLIED.
--- NOTE | 2020-02-12 10:35 | NUR ---
INFORMED CONSENT SIGNED/ WITNESSED FOR PRIMARY SECTION BY DR. ANN.
--- NOTE | 2020-02-12 10:55 | NUR ---
1000 CC WARM LR STARTED IV IN LEFT WRIST WITH #20G INTRACATH TRA W/O RATE. BLOOD OBTAINED FOR LABS PRIOR TO INITIATING FLUIDS.
[2020-02-12] MEDS ORDERED: ceFAZolin 2 GM IV Premixed 50 ML ONE (11:21)
[2020-02-12 11:24] LABS: BASOPHILS % (AUTO) 0 % (0-10); EOSINOPHILS # (AUTO) 0.1 10^3/uL (0.0-0.3); EOSINOPHILS % (AUTO) 1 % (0-10); HEMATOCRIT 36 % (35-52); HEMOGLOBIN 12.2 G/DL (11.5-16.0); LYMPHOCYTES # (AUTO) 1.5 X 10^3 (1.0-4.0); LYMPHOCYTES % (AUTO) 18 % (12-44); MEAN CORPUSCULAR HEMOGLOBIN 33 PG (25-34); MEAN CORPUSCULAR HGB CONC 34 G/DL (32-36); MEAN CORPUSCULAR VOLUME 97 FL (80-99); MEAN PLATELET VOLUME 10.8 FL (7.4-10.4); MONOCYTES # (AUTO) 0.6 X 10^3 (0.0-1.0); MONOCYTES % (AUTO) 7 % (0-12); NEUTROPHILS # (AUTO) 6.2 X 10^3 (1.8-7.8); NEUTROPHILS % (AUTO) 73 % (42-75); PLATELET COUNT 230 10^3/uL (130-400); RED CELL DISTRIBUTION WIDTH 12.6 % (10.0-14.5); WHITE BLOOD COUNT 8.4 10^3/uL (4.3-11.0)
--- NOTE | 2020-02-12 11:27 | History & Physical-OB ---
OB - Chief Complaint & HPI Date/Time Date of Admission: Date of Admission: Feb 12, 2020 at 09:58 Date seen by a Provider: Feb 12, 2020 Time Seen by a Provider: 11:35 Chief Complaint/History OB-Reason for Admission/Chief: Section Hx : 2 Hx Para: 1 Expected Date of Delivery: Feb 11, 2020 Gestational Age in Weeks: 40 Gestational Age in Days: 1 Indication for : malpresentation Admission Nurse Assessment Rev: Yes Allergies and Home Medications Allergies Coded Allergies: sulfamethoxazole (Verified Allergy, Mild, RASH, 02/11/20) trimethoprim (Verified Allergy, Mild, RASH, 02/11/20) Home Medications Vit W-Ca,Fe,FA(<1 mg) 1 Each Tablet, 1 EACH PO DAILY, (Reported) Patient Home Medication List Home Medication List Reviewed: Yes OB - History Hx of Present Care: Yes Ultrasounds: Normal mid trimester US Obstetrical Complications: None Medical Complications: None Delivery History Adverse Rxn to Tranfusion: No (N/A) Patient Past Medical History n/a Social History/Family History HIV/AIDS: Yes Sexually Transmitted Disease: No OB - Admission Exam Physical Exam HEENT: NCAT Heart: Rhythm Normal Lungs: Clear Abdomen: Gravid Extremities: Normal Reflexes: Normal Cervical Dilatation: 4cm Effacement: 75% Station: Ballotable Membranes: Intact Heart Rate: 130's Accelerations: Accelerations Present Decelerations: No Decelerations Short Term Variability: Present Cut In Worker Variability: Average (6-25) Contractions on Admission: < 5 Minutes Apart Intensity: Mild Labs Laboratory Tests Test 02/12/20 10:55 Range/Units OB - Assessment/Plan/Diagnosis Assessment Assessment: section Admission Dx 24 yo @ 40.1 Complete breech presentation Admission Status: Inpatient Order (span 2 midnights) Reason for Inpatient Admission: Primary Plan Plan: Section PINA ANN DO Feb 12, 2020 11:27
[2020-02-12] MEDS ORDERED: fentaNYL INJECTION 100 MCG/2 ML AMP ONE (11:28)
--- NOTE | 2020-02-12 11:30 | NUR ---
REACTIVE NST. FHR 125. + ACCELS. + FM. OCC CTX. DENIES ANY PAIN.
--- NOTE | 2020-02-12 11:37 | NUR ---
PRE-OP MEDS GIVEN.
[2020-02-12] MEDS ORDERED: BUPIVACAINE 0.25% 30 ML (SENSORCAINE) VIAL ONE (11:44)
[2020-02-12] MEDS ORDERED: LACTATED RINGERS 1,000 ML IV SCH (11:45)
[2020-02-12] MEDS ORDERED: LACTATED RINGERS 1,000 ML IV PRN (11:55)
--- NOTE | 2020-02-12 11:55 | NUR ---
2ND LITER OF LR STARTED TRA KVO RATE. SITE CLEAR. UP TO THE BATHROOM. TAMRA STONER CLOTH SHRINKING MACHINE OPERATOR HERE TO SEE PT.
--- NOTE | 2020-02-12 11:58 | NUR ---
RT HERE TO DO INCENTIVE SPIROMETRY. DR. ANN IN TO SEE PT.
--- NOTE | 2020-02-12 12:07 | NUR ---
EFM OFF. FHR 140. TO OB OR AMB IN STABLE CONDITION ACC BY SCREENING NURSE FOR A PRIMARY SECTION BY DR. ANN FOR BREECH PRESENTATION.
[2020-02-12] MEDS: OXYTOCIN PRE-MIX DRIP 500 ML IV SCH ×2 (13:11→19:20)
--- NOTE | 2020-02-12 14:25 | NUR ---
TRANSFERRED TO PP ROOM 307 VIA PT BED IN STABLE CONDITION ACC BY FRANCK CUI AND IRON FRANZ RN. SPOUSE PUSHING IN CRIB. ORIENTED TO SURROUNDINGS, INFORMATION PAPERS, CALL LIGHT OPERATION, MENU PROCEDURE AND TO CALL STAFF WHEN NEEDS TO GET UP TO VOID. STATES UNDERSTANDING.
--- NOTE | 2020-02-12 15:00 | NUR ---
INFANT. SANDWICH TRAY AND SPRITE GIVEN TO PT. SPOUSE EATING WELL. FF U/2. VAG FLOW LT/MOD RUBRA. ABLE TO WIGGLE LEGS. CALF SCDS ON BILATERALLY. IV PLACED ON PUMP WITH NEW TUBING. SITE CLEAR.
[2020-02-12] MEDS ORDERED: MEASLES,MUMPS,RUBELLA 1 EA INJ SC SCH (15:30)
[2020-02-12] MEDS ORDERED: TETANUS,DIPTH,PERTUSS P/F (BOOSTRIX) 0.5 ML VIAL IM SCH (15:30)
[2020-02-12] MEDS ORDERED: ONDANSETRON 4 MG/2 ML (SDV) Z0FRAN IVP PRN (15:30)
--- NOTE | 2020-02-12 15:30 | NUR ---
REPORT GIVEN TO SANDIP CALLEJAS RN.
--- NOTE | 2020-02-12 15:41 | OPERATIVE REPORT ---
DATE OF SERVICE: PREOPERATIVE DIAGNOSES: 1. A 24-year-old G2, P1 at 40 weeks and 1 day gestation. 2. Complete Breech presentation. POSTOPERATIVE DIAGNOSES: 1. A 24-year-old G2, P1 at 40 weeks and 1 day gestation. 2. Complete Breech presentation. PROCEDURE: Primary low transverse section. SURGEON: Blue Ann DO CRIME SCENE EVIDENCE TECHNICIAN: Angelique Bonilla DNP, who was necessary for retraction and manipulation throughout the procedure. ANESTHESIA: Spinal. ESTIMATED BLOOD LOSS: 500 mL. URINE OUTPUT: 50 mL, clear at the end of the procedure. FLUIDS: 900 mL lactated Ringer's solution. FINDINGS: A live male weighing 7 pounds 2 ounces, Apgars of 8 and 9. Grossly normal appearing uterus, left tube and ovary, absent right tube and ovary. SPECIMEN SENT: None. INDICATIONS FOR PROCEDURE: This 24-year-old female is a patient who had sought care in my office. Her care was uncomplicated. Yesterday on vaginal examination, I identified that there was no cephalic presentation. Foot was palpable on exam. Ultrasound confirmed this. I discussed with the patient a primary and the risk of breech delivery, especially complete breech delivery. Risk of was discussed with the patient in detail. After all her questions were answered pertaining to the procedure, recovery time frame and hospital stay, consent was obtained, the patient was taken to the operating room. OPERATIVE REPORT IN DETAIL: Once in the operating room, spinal anesthesia was found to be adequate. She was placed in supine position with leftward tilt, prepped and draped in normal sterile fashion. Timeout was performed. Anesthesia was tested. I then make a Pfannenstiel skin incision with a knife and carried down layer of fascia using Bovie cautery. The fascial incision extended laterally using Bovie cautery. Superior aspect of the fascial incision was then grasped with Keith clamps, tented up and dissected off the underlying rectus muscles. The inferior aspect of the fascial incision was then grasped with Keith clamps, tented up and dissected off the underlying rectus muscles. Rectus muscles were dissected down the midline, which exposed the peritoneum, which was entered bluntly and extended using blunt traction. Tien ring retractor was placed in the peritoneal incision, which offers excellent lateral sidewall retraction. I then identified the lower uterine segment, which was found to be thinned out and make a low transverse incision to the vesicouterine peritoneum and bluntly dissected off the lower uterine segment. I proceeded with myotomy until membranes are visualized, at which point I extended the uterine incision laterally and superiorly using bandage scissors. The infant was found in the complete breech presentation. The feet are removed through the incision up to the buttocks and then the buttocks allows me to remove the infant up to the upper torso where the arms were then delivered by sweeping them across the chest. The head was then delivered by lifting the 's body and flexing the head through the incision. The nares and oropharynx were then bulb suctioned. Infant was placed on the operative field where the cord was doubly clamped and cut and was handed off to waiting nurses in attendance. Cord blood was collected, 3-vessel cord with intact placenta is delivered spontaneously thereafter. IV Pitocin was initiated to facilitate uterine contraction. Uterine fundus confirmed by manual massage. Uterus was then exteriorized and cleared of all endometrial clots and debris. I then proceeded with closing the uterine incision using 0 Vicryl suture in running locked fashion. A second layer of imbricating 0 Monocryl was placed. Excellent hemostasis was noted after doing this. I then placed the uterus back in the pelvis and copiously irrigated the pelvis using normal saline. There was no active bleeding noted from any of my dissection planes. I placed Interceed antiadhesive over my low transverse incision and proceeded with closing the peritoneum after removing the Tien ring retractor. The peritoneum was reapproximated using 3-0 Vicryl suture in running fashion. The rectus muscles were reapproximated using 3-0 Vicryl suture in interrupted fashion. The fascia was reapproximated using 0 Vicryl suture in running fashion. The subcutaneous tissue was reapproximated using 3-0 plain in an interrupted subcutaneous stitch and the skin is reapproximated using 4-0 Monocryl running subcuticular. Dermabond was applied to incision and sterile dressing was adhesed with white tape. The patient tolerated the procedure well and sent to recovery in stable condition. Lap and sponge counts were correct at the end of the procedure. Instrument counts correct as well. Two grams of Ancef were given preoperatively for infection prophylaxis. Job ID: [id number] DocumentID: [id number] Dictated Date: 02/12/2020 14:32:09 Maritime Officer Date: 02/12/2020 15:39:20 Dictated By: BLUE ANN DO
[2020-02-12] MEDS: KETOROLAC 30 MG/ML VIAL IV SCH ×2 (15:47→22:11)
[2020-02-12] MEDS: HYDROcodone/APAP 5 MG/325 MG (LORTAB) TAB PO PRN ×2 (17:45→20:38)
--- NOTE | 2020-02-12 20:30 | NUR ---
pt sitting in bed, has been up to void and ambulate in room. VSS, plan of care reviewed with pt.
[2020-02-12] MEDS: DOCUSATE SODIUM 100 MG (COLACE) CAP PO SCH (20:38)
[2020-02-12] MEDS ORDERED: CATHETER FLUSH 10 ML SYR IV SCH (22:00)
--- NOTE | 2020-02-12 22:15 | NUR ---
Warm blanket given for lower abdominal cramping.
[2020-02-13 00:15] VITALS: BP 114/68
--- NOTE | 2020-02-13 00:15 | NUR ---
Pt at this time.
--- NOTE | 2020-02-13 02:20 | NUR ---
Pt sitting in bed holding infant. Infant placed in open crib per mother's request. Pain medication offered. mother requesting to rest at this time.
[2020-02-13] MEDS: HYDROcodone/APAP 5 MG/325 MG (LORTAB) TAB PO PRN ×4 (02:22→23:52)
[2020-02-13] MEDS: KETOROLAC 30 MG/ML VIAL IV SCH (04:25)
[2020-02-13 04:26] VITALS: BP 113/70
[2020-02-13 05:24] LABS: BASOPHILS % (AUTO) 0 % (0-10); EOSINOPHILS # (AUTO) 0.1 10^3/uL (0.0-0.3); EOSINOPHILS % (AUTO) 1 % (0-10); HEMATOCRIT 34 % (35-52); HEMOGLOBIN 11.5 G/DL (11.5-16.0); LYMPHOCYTES % (AUTO) 17 % (12-44); MEAN CORPUSCULAR HEMOGLOBIN 33 PG (25-34); MEAN CORPUSCULAR HGB CONC 34 G/DL (32-36); MEAN CORPUSCULAR VOLUME 98 FL (80-99); MEAN PLATELET VOLUME 10.3 FL (7.4-10.4); MONOCYTES # (AUTO) 0.9 X 10^3 (0.0-1.0); MONOCYTES % (AUTO) 8 % (0-12); NEUTROPHILS # (AUTO) 8.8 X 10^3 (1.8-7.8); NEUTROPHILS % (AUTO) 74 % (42-75); PLATELET COUNT 216 10^3/uL (130-400); RED CELL DISTRIBUTION WIDTH 12.9 % (10.0-14.5); WHITE BLOOD COUNT 11.9 10^3/uL (4.3-11.0)
[2020-02-13] MEDS ORDERED: HYDR-83 PO (08:25)
[2020-02-13] MEDS ORDERED: DCS100C PO (08:25)
[2020-02-13] MEDS ORDERED: IBUP-844 PO (08:25)
--- NOTE | 2020-02-13 08:27 | Discharge Inst-Women's Service ---
Discharge Inst-Women's Serv Depart Medication/Instructions New, Converted or Re-Newed RX: RX on Chart Final Diagnosis POD 2 PLTCS Problems Reviewed?: Yes Consults/Follow Up Additional Follow Up: Yes Orders/Referrals Dr. Ann in 7-10 days and in 6 weeks Activity Activity: Activity as Tolerated Driving Instructions: No Driving for 1 Week NO SMOKING: NO SMOKING Nothing Inside Vagina: No Douching, No Stanton, No Tampons Diet Discharge Diet: No Restrictions Symptoms to Report to : Bleeding Excessive, Pain Increased, Fever Over 101 Degrees F, Vaginal Bleeding Increase, Questions/Concerns PINA ANN DO Feb 13, 2020 08:26
--- NOTE | 2020-02-13 08:28 | Postpartum Progress Note ---
Note Note Day # 1 Subjective: Patient is without complaints. Ambulating, voiding. Tolerating a regular diet without nausea or vomiting. Normal lochia. Pain is well controlled with oral pain medications. Objective: Physical Exam: General - Alert and oriented, no apparent distress Abdomen - Soft, appropriately tender to palpation, non-distended, fundus firm at umbilicus Extremities - no edema, negative Arlyn's bilaterally Incision- c/d/i Assessment: POD 1 PLTCS Plan: Routine care. Encourage breast feeding. Encourage ambulation. Ferrous sulfate supplementation. Plan for discharge tomorrow Vitals - Labs Vital Signs - I&O Vital Signs Date Time Temp Pulse Resp B/P (MAP) Pulse Ox O2 Delivery O2 Flow Rate FiO2 02/13/20 04:26 36.4 80 16 113/70 (84) Room Air 02/13/20 00:15 36.8 75 16 114/68 (83) Room Air 02/12/20 20:30 37.1 79 16 116/67 (83) 98 Room Air 02/12/20 15:50 36.3 71 16 121/79 (93) 100 Room Air 02/12/20 14:30 36.7 77 18 124/78 (93) 99 Room Air 02/12/20 14:11 36.7 17 122/75 (91) 99 Room Air 02/12/20 14:11 Room Air 02/12/20 13:56 Room Air 02/12/20 13:56 36.7 16 111/66 (81) 99 Room Air 02/12/20 13:41 36.5 16 112/72 (85) 99 Room Air 02/12/20 13:41 Room Air 02/12/20 13:26 Room Air 02/12/20 13:26 36.4 16 108/64 (79) 98 Room Air 02/12/20 13:11 Room Air 02/12/20 13:11 36.4 16 107/65 (79) 98 Room Air 02/12/20 12:17 95 Room Air 02/12/20 12:05 80 18 122/86 (98) Room Air 02/12/20 11:30 62 18 115/70 (85) Room Air 02/12/20 11:00 36.6 61 18 98 Room Air 02/12/20 11:00 36.6 61 18 109/67 (81) 98 Room Air I & O 02/13/20 07:00 Intake Total 3150 ml Output Total 1750 ml Balance 1400 ml Labs Laboratory Tests 02/12/20 10:55: White Blood Count 8.4, Red Blood Count 3.65L, Hemoglobin 12.2, Hematocrit 36, Mean Corpuscular Volume 97, Mean Corpuscular Hemoglobin 33, Mean Corpuscular Hemoglobin Concent 34, Red Cell Distribution Width 12.6, Platelet Count 230, Mean Platelet Volume 10.8H, Neutrophils (%) (Auto) 73, Lymphocytes (%) (Auto) 18, Monocytes (%) (Auto) 7, Eosinophils (%) (Auto) 1, Basophils (%) (Auto) 0, Neutrophils # (Auto) 6.2, Lymphocytes # (Auto) 1.5, Monocytes # (Auto) 0.6, Eosinophils # (Auto) 0.1, Basophils # (Auto) 0.0 02/13/20 05:03: White Blood Count 11.9H, Red Blood Count 3.45L, Hemoglobin 11.5, Hematocrit 34L, Mean Corpuscular Volume 98, Mean Corpuscular Hemoglobin 33, Mean Corpuscular Hemoglobin Concent 34, Red Cell Distribution Width 12.9, Platelet Count 216, Mean Platelet Volume 10.3, Neutrophils (%) (Auto) 74, Lymphocytes (%) (Auto) 17, Monocytes (%) (Auto) 8, Eosinophils (%) (Auto) 1, Basophils (%) (Auto) 0, Neutrophils # (Auto) 8.8H, Lymphocytes # (Auto) 2.0, Monocytes # (Auto) 0.9, Eosinophils # (Auto) 0.1, Basophils # (Auto) 0.0 PINA ANN DO Feb 13, 2020 08:28
[2020-02-13 10:00] VITALS: BP 114/73
[2020-02-13] MEDS: DOCUSATE SODIUM 100 MG (COLACE) CAP PO SCH ×2 (10:16→21:45)
[2020-02-13] MEDS: IBUPROFEN 600 MG (MOTRIN) TAB PO SCH ×3 (10:17→21:45)
[2020-02-13 12:43] VITALS: BP 123/66
[2020-02-13] MEDS ORDERED: IBUPROFEN 600 MG (MOTRIN) TAB PO SCH (15:30)
[2020-02-13 15:58] VITALS: BP 116/66
--- NOTE | 2020-02-13 16:09 | NUR ---
Notified Dr Contreras that pt is requesting laxative. Received "O".
[2020-02-13] MEDS: BISACODYL 5 MG (DULCOLAX) TABLET PO SCH (16:36)
--- NOTE | 2020-02-13 19:00 | NUR ---
pt up ambulating in halls with s.o. and in crib.
--- NOTE | 2020-02-13 20:06 | NUR ---
pt laying in bed watching tv with infant and s.o. at bedside, fresh ice water given, extra linens given and plan of care reviewed.
--- NOTE | 2020-02-13 21:27 | NUR ---
Pt at this time.
[2020-02-13 21:50] VITALS: BP 120/79
--- NOTE | 2020-02-14 | NUR ---
Pt laying in bed awake, fresh ice water and ice pack given.
--- NOTE | 2020-02-14 01:24 | NUR ---
rounding on pt, infant placed in open crib per mother's request, mother is going to rest at this time.
[2020-02-14 04:00] VITALS: BP 122/78
[2020-02-14] MEDS: IBUPROFEN 600 MG (MOTRIN) TAB PO SCH ×2 (04:03→09:53)
[2020-02-14] MEDS: HYDROcodone/APAP 5 MG/325 MG (LORTAB) TAB PO PRN (05:59)
[2020-02-14] MEDS: BISACODYL 5 MG (DULCOLAX) TABLET PO SCH (07:59)
[2020-02-14] MEDS: DOCUSATE SODIUM 100 MG (COLACE) CAP PO SCH (07:59)
[2020-02-14 08:00] VITALS: BP 120/86
--- NOTE | 2020-02-14 08:48 | Anesthesia-Regional Post-Op ---
Regional Patient Condition Mental Status: Alert, Oriented x3 Circulation: Same as Pre-Op Headache: Absent Sensation: Full Recovery Motor Block: Absent Post Op Complications Complications None Follow Up Care/Instructions Patient Instructions None needed. Anesthesia/Patient Condition Patient is doing well, no complaints, stable vital signs, no apparent adverse anesthesia problems. No complications reported per nursing. CHUCKY STONER CRNA Feb 14, 2020 08:48
--- NOTE | 2020-02-14 09:21 | NUR ---
Dr Contreras to see patient.
--- NOTE | 2020-02-14 09:29 | Postpartum Progress Note ---
Note Note Day # 2 Subjective: Patient is without complaints. Ambulating, voiding. Tolerating a regular diet without nausea or vomiting. Normal lochia. Pain is well controlled with oral pain medications. Objective: Physical Exam: General - Alert and oriented, no apparent distress Abdomen - Soft, appropriately tender to palpation, non-distended, fundus firm at umbilicus Extremities - no edema, negative Arlyn's bilaterally Incision- c/d/i Assessment: POD 2 PLTCS Plan: Routine care. Encourage breast feeding. Encourage ambulation. Ferrous sulfate supplementation. Plan for discharge today Vitals - Labs Vital Signs - I&O Vital Signs Date Time Temp Pulse Resp B/P (MAP) Pulse Ox O2 Delivery O2 Flow Rate FiO2 02/14/20 08:00 37.0 74 18 120/86 (97) 99 Room Air 02/14/20 04:00 36.7 71 16 122/78 (93) Room Air 02/13/20 21:50 36.8 66 18 120/79 (93) Room Air 02/13/20 15:58 37.0 68 18 116/66 (83) 98 Room Air 02/13/20 12:43 36.8 68 18 123/66 (85) 97 Room Air 02/13/20 10:00 37.0 68 16 114/73 (87) 97 Room Air I & O 02/14/20 07:00 Intake Total 1500 ml Output Total 1200 ml Balance 300 ml Labs Microbiology 02/12/20 MRSA Screen - Final, Complete MRSA not isolated PINA ANN DO Feb 14, 2020 09:29
--- NOTE | 2020-02-14 09:55 | NUR ---
Discharge instructions explained, signed and copy to patient. pt verbalized understanding of instructions and denied questions. prescriptions given and discussed medications with patient. pt denied questions about medications.
[2020-02-14 10:55] VITALS: BP 120/86
--- NOTE | 2020-02-14 10:55 | NUR ---
Discharged to home. Downstairs in wheelchair with belongings in hand. To private vehicle. Accompanied by s.o. and staff
== END 2020-02-14 10:55 | disposition home or self-care (01) | DRG 788 ==
LOC: LDRP 09:58
PROVIDERS: ADMIT Obstetrics & Gynecology; ATTEND Obstetrics & Gynecology
PROC: 10D00Z1 Extraction of Products of Conception, Low, Open Approach (ICD-10-PCS; principal; 2020-02-12 12:09)
DX: O64.1XX0 Obstructed labor due to breech presentation, not applicable or unspecified (principal); O48.0 Post-term pregnancy; Z37.0 Single live birth; Z3A.40 40 weeks gestation of pregnancy
CPT/HCPCS: 36415; 85025; 86850; 86900; 86901; 87081; 94664

== ENCOUNTER 2020-10-29 21:43 | Emergency (ER) | payer BC ==
[~2020-10-29] VITALS: Ht 170 cm; Wt 77.0 kg
[~2020-10-29 21:43] MED LIST changes: +ACHD5005 PO; +DCS100C PO; +IBUP-844 PO
[2020-10-29 22:18] LABS: BILIRUBIN,URINE 1+ (NEGATIVE); CLARITY,URINE CLEAR; COLOR,URINE YELLOW; GLUCOSE, URINE (UA) NEGATIVE (NEGATIVE); KETONES,URINE 3+ (NEGATIVE); LEUKOCYTE ESTERASE ,URINE TRACE (NEGATIVE); NITRITE,URINE NEGATIVE (NEGATIVE); PROTEIN,URINE NEGATIVE (NEGATIVE)
--- NOTE | 2020-10-29 22:23 | ED Abdominal Pain ---
General Chief Complaint: Abdominal/GI Problems Stated Complaint: LOWER ABD PAIN/VOMMITING Source of Information: Patient Exam Limitations: No Limitations History of Present Illness Date Seen by Provider: Oct 29, 2020 Time Seen by Provider: 22:06 Initial Comments Patient presents ER by private conveyance with chief complaint of constant aching sharp abdominal pain in her epigastric down into her right lower quadrant/suprapubic area pain that is unrelieved by bowel movements or eating. She had a normal bowel movement this afternoon. She has a history of Crohn's but she says this feels very different. She does not take steroids or any medications for her Crohn's only essential oils. She has a history of but no other abdominal surgeries. No trauma. She has not taken anything for pain or nausea. She is nauseated now and has vomited today. Her symptoms started at 9 AM this morning about 13 hours prior to arrival. She is not having any dysuria diarrhea loss of sense of taste or smell, fevers, chills, cough or shortness of air, sick contacts. Allergies and Home Medications Allergies Coded Allergies: sulfamethoxazole (Verified Allergy, Mild, RASH, 02/11/20) trimethoprim (Verified Allergy, Mild, RASH, 02/11/20) Home Medications Docusate Sodium 100 Mg Capsule, 100 MG PO BID PRN for CONSTIPATION-1ST LINE Prescribed by: PINA ANN on 02/13/20 0825 Hydrocodone/Acetaminophen 1 Each Tablet, 1-2 TAB PO Q6HR PRN for PAIN-MODERATE (5-7) Prescribed by: PINA ANN on 02/13/20 08 Ibuprofen 600 Mg Tablet, 600 MG PO Q6H Prescribed by: PINA ANN on 02/13/20 0825 Vit W-Ca,Fe,FA(<1 mg) 1 Each Tablet, 1 EACH PO DAILY, (Reported) Patient Home Medication List Home Medication List Reviewed: Yes Review of Systems Review of Systems Constitutional: No chills, No diaphoresis EENTM: No Blurred Vision, No Double Vision Respiratory: Denies Cough, Denies Orthopnea, Denies Shortness of Air Cardiovascular: Denies Chest Pain, Denies Lightheadedness Gastrointestinal: See HPI, Abdominal Pain; Denies Constipated, Denies Diarrhea; Nausea, Vomiting Genitourinary: Denies Burning, Denies Discharge Musculoskeletal: No back pain, No joint pain Skin: No pruritus, No rash Psychiatric/Neurological: Denies Anxiety, Denies Depressed, Denies Headache, Denies Numbness All Other Systems Reviewed Negative Unless Noted: Yes Past Vdqgfzb-Decrre-Ouuybr Hx Patient Social History Alcohol Use: Denies Use Recreational Drug Use: No Smoking Status: Never a Smoker Recent Foreign Travel: No Contact w/Someone Who Travel: No Recent Hopitalizations: No Immunizations Up To Date PED Vaccines UTD: Yes Seasonal Allergies Seasonal Allergies: No Past Medical History Surgeries: Yes (COLONOSCOPY) Respiratory: No Currently Using CPAP: No Currently Using BIPAP: No Cardiac: No Neurological: No Female Reproductive Disorders: Denies Sexually Transmitted Disease: No HIV/AIDS: Yes Genitourinary: No Gastrointestinal: No Ulcer Musculoskeletal: No Endocrine: No HEENT: Yes (CONTACTS) Loss of Vision: Denies Hearing Impairment: Denies Cancer: No Psychosocial: No Integumentary: No Blood Disorders: No Adverse Reaction/Blood Tranf: No (N/A) Family Medical History FH: stroke GRANDMOTHER M GRANDMOTHER P Hypertension GRANDMOTHER P No Pertinent Family Hx Physical Exam Vital Signs Vital Signs - First Documented 10/29/20 22:06 Temp 37.4 Pulse 102 Resp 16 B/P (MAP) 126/83 (97) O2 Delivery Room Air Capillary Refill : Height/Weight/BMI Height: 5'6.00" Weight: 170lbs. 0.0oz. 77.385683ny; 30.93 BMI Method:Stated General Appearance: WD/WN, mild distress HEENT: PERRL/EOMI, pharynx normal Neck: full range of motion, normal inspection Respiratory: lungs clear, normal breath sounds, no respiratory distress, no accessory muscle use Cardiovascular: normal peripheral pulses, regular rate, rhythm Peripheral Pulses: 2+ Radial Pulses (R), 2+ Radial Pulses (L) Gastrointestinal: normal bowel sounds, soft, tenderness (Epigastric and supr apubic. Negative for Clay's sign or McBurney's point tenderness or rebound tenderness. No mesenteric signs. Ambulated normally) Extremities: normal range of motion, non-tender, normal inspection Neurologic/Psychiatric: alert, normal mood/affect, oriented x 3 Skin: normal color, warm/dry Progress/Results/Core Measures Results/Orders Lab Results Laboratory Tests Test 10/29/20 22:10 10/29/20 22:35 Range/Units Urine Color YELLOW Urine Clarity CLEAR Urine pH 8.0 5-9 Urine Specific Temperance 1.020 1.016-1.022 Urine Protein NEGATIVE NEGATIVE Urine Glucose (UA) NEGATIVE NEGATIVE Urine Ketones 3+ H NEGATIVE Urine Nitrite NEGATIVE NEGATIVE Urine Bilirubin 1+ H NEGATIVE Urine Urobilinogen 0.2 < = 1.0 MG/DL Urine Leukocyte Esterase TRACE H NEGATIVE Urine RBC (Auto) NEGATIVE NEGATIVE Urine RBC NONE /HPF Urine WBC 2-5 /HPF Urine Crystals PRESENT H /LPF Urine Amorphous Sediment FEW ALINA PHOSPHATE H /LPF Urine Bacteria TRACE /HPF Urine Casts NONE /LPF Urine Mucus MODERATE H /LPF Urine Culture Indicated NO White Blood Count 9.8 4.3-11.0 10^3/uL Red Blood Count 4.04 3.80-5.11 10^6/uL Hemoglobin 12.2 11.5-16.0 g/dL Hematocrit 37 35-52 % Mean Corpuscular Volume 91 80-99 fL Mean Corpuscular Hemoglobin 30 25-34 pg Mean Corpuscular Hemoglobin Concent 33 32-36 g/dL Red Cell Distribution Width 12.6 10.0-14.5 % Platelet Count 378 130-400 10^3/uL Mean Platelet Volume 9.7 9.0-12.2 fL Immature Granulocyte % (Auto) 0 % Neutrophils (%) (Auto) 84 H 42-75 % Lymphocytes (%) (Auto) 7 L 12-44 % Monocytes (%) (Auto) 8 0-12 % Eosinophils (%) (Auto) 0 0-10 % Basophils (%) (Auto) 1 0-10 % Neutrophils # (Auto) 8.2 H 1.8-7.8 10^3/uL Lymphocytes # (Auto) 0.7 L 1.0-4.0 10^3/uL Monocytes # (Auto) 0.8 0.0-1.0 10^3/uL Eosinophils # (Auto) 0.0 0.0-0.3 10^3/uL Basophils # (Auto) 0.1 0.0-0.1 10^3/uL Immature Granulocyte # (Auto) 0.0 0.0-0.1 10^3/uL Sodium Level 137 135-145 MMOL/L Potassium Level 3.6 3.6-5.0 MMOL/L Chloride Level 105 98-107 MMOL/L Carbon Dioxide Level 21 21-32 MMOL/L Anion Gap 11 5-14 MMOL/L Blood Urea Nitrogen 11 7-18 MG/DL Creatinine 0.79 0.60-1.30 MG/DL Estimat Glomerular Filtration Rate > 60 BUN/Creatinine Ratio 14 Glucose Level 112 H 70-105 MG/DL Calcium Level 8.7 8.5-10.1 MG/DL Corrected Calcium 8.9 8.5-10.1 MG/DL Total Bilirubin 0.4 0.1-1.0 MG/DL Aspartate Amino Transf (AST/SGOT) 45 H 5-34 U/L Alanine Aminotransferase (ALT/SGPT) 25 0-55 U/L Alkaline Phosphatase 66 40-136 U/L C-Reactive Protein High Sensitivity 3.38 H 0.00-0.50 MG/DL Total Protein 7.0 6.4-8.2 GM/DL Albumin 3.7 3.2-4.5 GM/DL Lipase 18 8-78 U/L My Orders Orders - JABIER HOUSER Ua Culture If Indicated (10/29/20 22:08) Urine Bedside (10/29/20 22:08) Cbc With Automated Diff (10/29/20 22:17) Comprehensive Metabolic Panel (10/29/20 22:17) Hs C Reactive Protein (10/29/20 22:17) Lipase (10/29/20 22:17) Ed Iv/Invasive Line Start (10/29/20 22:17) Lactated Ringers (Lr 1000 Ml Iv Solution (10/29/20 22:30) Fentanyl Injection (Sublimaze Injection (10/29/20 22:30) Ondansetron Injection (Zofran Injectio (10/29/20 22:30) Medications Given in ED Current Medications Medications Dose Ordered Sig/Tiarra Route Start Time Stop Time Status Last Admin Dose Admin Fentanyl Citrate 25 mcg ONCE ONCE IVP 10/29/20 22:30 10/29/20 22:31 DC 10/29/20 22:26 25 MCG Lactated Ringer's 1,000 ml @ 0 mls/hr Q0M ONCE IV 10/29/20 22:30 10/29/20 22:31 DC 10/29/20 22:26 999 MLS/HR Ondansetron HCl 4 mg ONCE ONCE IVP 1/7/21 22:30 10/29/20 22:31 DC 10/29/20 22:26 4 MG Vital Signs/I&O 10/29/20 22:06 Temp 37.4 Pulse 102 Resp 16 B/P (MAP) 126/83 (97) O2 Delivery Room Air Progress Progress Note #1: Time: : Progress Note Plan to give her some fentanyl as NSAIDs may worsen her Crohn's. We will check some labs including a lipase and urinalysis. If her labs are okay this may just be a viral gastroenteritis. Ondansetron for nausea. A liter of fluids. Progress Note #2: Time: 23:22 Progress Note The patient is discomfort is significantly improved after 25 mcg of fentanyl and ondansetron and fluids. She has a nonacute abdominal exam and labs are unremarkable. No significant elevation of inflammatory markers or white count. We discussed with her doing an ultrasound of her gallbladder in the morning. We discussed return precautions. She has followed with Dr. Paiz in the past and we recommend that she follow-up with her in the clinic in the next week or 2 if her symptoms are not improving. Plan to put her on a PPI and provide her with some ondansetron. Departure Impression Primary Impression: Abdominal pain Qualified Codes: R10.13 - Epigastric pain Additional Impression: Nausea and vomiting Qualified Codes: R11.2 - Nausea with vomiting, unspecified Disposition: 01 HOME, SELF-CARE Condition: Stable Departure-Patient Inst. Decision time for Depature: 23:26 Referrals: PINA ANN DO (PCP/Family) Primary Care Physician UMER PAIZ DO Patient Instructions: Gallbladder Diet Add. Discharge Instructions: Nothing to eat or drink after midnight tomorrow. Call and set up ultrasound of your gallbladder tomorrow. Omeprazole or pantoprazole 40 mg daily for the next 2 weeks. You can try Tylenol 1000 mg every 8 hours as necessary for pain, antacids such as Tums, Rolaids, Mylanta etc. Ondansetron 1 tablet every 6 hours as necessary for nausea and/or vomiting All discharge instructions reviewed with patient and/or family. Voiced understanding. Scripts Ondansetron (Ondansetron Odt) 4 Mg Tab.rapdis 4 MG PO Q6H PRN for NAUSEA/VOMITING, #8 TAB 0 Refills Prov: JABIER HOUSER 10/29/20 Work/School Note: Work Release Form Date Seen in the Emergency Department: Oct 29, 2020 Return to Work: Oct 31, 2020 Restrictions: No Restrictions Copy Copies To 1: UMER PAIZ TITUS J Oct 29, 2020 22:23
[2020-10-29 22:29] LABS: BACTERIA,URINE TRACE /HPF
[2020-10-29 22:30] LABS: AMORPHOUS SEDIMENT,UR FEW AMOR PHOSPHATE /LPF
[2020-10-29] MEDS ORDERED: LACTATED RINGERS 1,000 ML IV ONE (22:30)
[2020-10-29] MEDS ORDERED: ONDANSETRON 4 MG/2 ML (SDV) Z0FRAN IVP ONE (22:30)
[2020-10-29] MEDS ORDERED: fentaNYL INJECTION 100 MCG/2 ML AMP IVP ONE (22:30)
[2020-10-29 22:41] LABS: BASOPHILS # (AUTO) 0.1 10^3/uL (0.0-0.1); BASOPHILS % (AUTO) 1 % (0-10); EOSINOPHILS % (AUTO) 0 % (0-10); HEMATOCRIT 37 % (35-52); HEMOGLOBIN 12.2 g/dL (11.5-16.0); LYMPHOCYTES # (AUTO) 0.7 10^3/uL (1.0-4.0); LYMPHOCYTES % (AUTO) 7 % (12-44); MEAN CORPUSCULAR HEMOGLOBIN 30 pg (25-34); MEAN CORPUSCULAR HGB CONC 33 g/dL (32-36); MEAN CORPUSCULAR VOLUME 91 fL (80-99); MEAN PLATELET VOLUME 9.7 fL (9.0-12.2); MONOCYTES # (AUTO) 0.8 10^3/uL (0.0-1.0); MONOCYTES % (AUTO) 8 % (0-12); NEUTROPHILS # (AUTO) 8.2 10^3/uL (1.8-7.8); NEUTROPHILS % (AUTO) 84 % (42-75); PLATELET COUNT 378 10^3/uL (130-400); WHITE BLOOD COUNT 9.8 10^3/uL (4.3-11.0)
[2020-10-29 23:03] LABS: ALANINE AMINOTRANSFERASE 25 U/L (0-55); ALBUMIN 3.7 GM/DL (3.2-4.5); ALKALINE PHOSPHATASE 66 U/L (40-136); BILIRUBIN,TOTAL 0.4 MG/DL (0.1-1.0); BUN/CREATININE RATIO 14; CALCIUM 8.7 MG/DL (8.5-10.1); CARBON DIOXIDE 21 MMOL/L (21-32); CHLORIDE 105 MMOL/L (98-107); CREATININE SERUM 0.79 MG/DL (0.60-1.30); GFR ESTIMATED > 60; GLUCOSE 112 MG/DL (70-105); LIPASE 18 U/L (8-78); POTASSIUM 3.6 MMOL/L (3.6-5.0); SODIUM 137 MMOL/L (135-145)
[2020-10-29] MEDS ORDERED: ONDA4TAB11 PO (23:29)
[2020-10-29] MEDS ORDERED: RX-ONDANSETRON 4 MG ODT (ZOFRAN) PPK #4 PO STA (23:30)
[2020-10-29 23:38] VITALS: BP 129/76
== END 2020-10-29 23:38 | disposition home or self-care (01) ==
LOC: EDUNIT# 21:43 → ER 21:45
DX: R10.13 Epigastric pain (principal); R11.2 Nausea with vomiting, unspecified; Z87.19 Personal history of other diseases of the digestive system; Z88.2 Allergy status to sulfonamides; Z88.1 Allergy status to other antibiotic agents; Z82.49 Family history of ischemic heart disease and other diseases of the circulatory system
CPT/HCPCS: 36415; 80053; 81000; 83690; 84703; 85025; 86141

== ENCOUNTER → 2020-10-30 | Outpatient (CLI) | payer BC ==
[~2020-10-30] MED LIST changes: +ONDA4TAB11 PO
--- NOTE | 2020-10-30 12:30 | Diagnostic Imaging Report ---
PROCEDURE: US Gallbladder. TECHNIQUE: Multiple real-time grayscale images were obtained over the right upper quadrant in various projections. INDICATION: Right upper quadrant pain. No prior studies are available for comparison. The liver is normal in size at 16 cm. No discrete liver mass is detected. Portal vein is patent and shows normal direction of flow. Gallbladder is without stones or sludge. No wall thickening or biliary ductal dilatation is seen. The pancreas is unremarkable. Aorta is nonaneurysmal. IVC is patent. Right kidney is without calculi or hydronephrosis. There is no ascites. IMPRESSION: Unremarkable gallbladder ultrasound. There is no evidence of cholelithiasis or acute cholecystitis. Dictated by: Dictated on workstation # [id number]
== END ==
LOC: RAD 09:36
PROVIDERS: ATTEND Emergency Medicine
DX: R10.11 Right upper quadrant pain (principal); R11.2 Nausea with vomiting, unspecified
CPT/HCPCS: 76705

== ENCOUNTER → 2020-11-16 | Outpatient (CLI) | payer BC ==
[~2020-11-16] MED LIST changes: +CATHETER FLUSH 10 ML SYR IV PRN
--- NOTE | 2020-11-16 15:17 | Diagnostic Imaging Report ---
EXAMINATION: Gallbladder scintigraphy. HISTORY: Right upper quadrant pain. COMPARISON: None available. TECHNIQUE: Anterior scintigraphic imaging of the abdomen was performed after the intravenous administration of 5.2 mCi Tc-99m Choletec. FINDINGS: The upper abdomen was imaged for 60 minutes with the gamma camera. There is prompt homogeneous uptake of radiopharmaceutical by the liver. There is activity in the common duct and gallbladder by 10 minutes. Small bowel activity is seen by 25 minutes. At 60 minutes, the patient received 8 ounces of Ensure. After an additional 60 minutes, the gallbladder ejection fraction was calculated to be 35% (normal is >35%) IMPRESSION: 1. Patent common and cystic bile ducts. 2. Borderline reduced gallbladder ejection fraction of 35%, suggestive of gallbladder dysfunction. Dictated by: Dictated on workstation # [id number]
== END ==
LOC: CARD 12:31
PROVIDERS: ATTEND Obstetrics & Gynecology
DX: R10.11 Right upper quadrant pain (principal)
CPT/HCPCS: 78227; A9537

== ENCOUNTER 2020-12-10 06:58 | Outpatient (RCR) | payer BC ==
[~2020-12-10] VITALS: Ht 170.2 cm; Wt 77.3 kg
[~2020-12-10 06:58] MED LIST changes: -CATHETER FLUSH 10 ML SYR IV PRN
[2020-12-17] MEDS ORDERED: ACHD5005 PO (08:59)
[2020-12-17] MEDS ORDERED: DOCU-143 PO (08:59)
== END 2020-12-15 14:15 | disposition home or self-care (01) ==
LOC: PREOP 06:58
PROVIDERS: ATTEND Surgery
DX: Z01.818 Encounter for other preprocedural examination (principal)

== ENCOUNTER 2020-12-17 06:09 | Day surgery (SDC) | payer BC ==
[~2020-12-17] VITALS: Ht 170 cm; Wt 77.3 kg
[2020-12-17] VITALS (12 sets, daily range): BP systolic 117–138; BP diastolic 69–85
[2020-12-17] MEDS ORDERED: NORE0.3561 PO (06:44)
[2020-12-17] MEDS ORDERED: ceFAZolin 1,000 MG/SWFI 10 ML IV PUSH IV ONE ×2 (06:45)
[2020-12-17] MEDS ORDERED: ceFAZolin 2 GM IV Premixed 50 ML IV ONE (06:45)
[2020-12-17] MEDS ORDERED: LACTATED RINGERS 1,000 ML IV PRN (06:45)
[2020-12-17] MEDS ORDERED: NEOSTIGMINE 3 MG/3 ML VIAL ONE (06:47)
[2020-12-17] MEDS ORDERED: SEVOFLURANE (ULTANE) 15 ML INHAL SOLN ONE ×3 (06:47→08:47)
[2020-12-17] MEDS ORDERED: fentaNYL INJECTION 100 MCG/2 ML AMP ONE ×2 (06:47→08:16)
[2020-12-17] MEDS ORDERED: ROCURONIUM 10 MG/ML 5 ML SYRINGE IV ONE (06:47)
[2020-12-17] MEDS ORDERED: ONDANSETRON 4 MG/2 ML (SDV) Z0FRAN ONE (06:47)
[2020-12-17] MEDS ORDERED: LIDOCAINE PF 2% 5 ML (XYLOCAINE) VIAL ONE (06:47)
[2020-12-17] MEDS ORDERED: MIDAZOLAM 2 MG/2 ML (VERSED) VIAL ONE (06:47)
[2020-12-17] MEDS ORDERED: GLYCOPYRROLATE 0.2 MG/ML (ROBINUL) 2 ML VIAL ONE (06:47)
[2020-12-17] MEDS ORDERED: proPOfol 200 MG/20 ML (DIPRIVAN) VIAL IV ONE (06:47)
[2020-12-17] MEDS ORDERED: LIDOCAINE/EPI 1%-1:200,000 (XYLOCAINE) 10 ML VIAL ONE (07:10)
[2020-12-17] MEDS ORDERED: IOPAMIDOL 61% 30 ML (ISOVUE 300) VIAL ONE (07:10)
--- NOTE | 2020-12-17 07:51 | Progress Note-Pre Operative ---
Pre-Operative Progress Note H&P Reviewed The H&P was reviewed, patient examined and no changes noted. Date Seen by Provider: Dec 17, 2020 Time Seen by Provider: 07:35 Date H&P Reviewed: Dec 17, 2020 Time H&P Reviewed: 07:35 Pre-Operative Diagnosis: epigastric abdominal pain, biliary dyskinesia TRACY SHELLEY DO Dec 17, 2020 07:51
--- NOTE | 2020-12-17 08:58 | Progress Note-Post Operative ---
Post-Operative Progess Note Surgeon (s)/Computer Operations Specialist (s) Surgeon TRACY SEHLLEY DO Computer Operations Specialist: Dr. Durant to assist in retraction dissection and closure. Pre-Operative Diagnosis epigastric abdominal pain, biliary dyskinesia Post-Operative Diagnosis same and small umbilical hernia Procedure & Operative Findings Date of Procedure 12/17/20 Procedure Performed/Findings PROCEDURE: Laparoscopic cholecystectomy with intraoperative cholangiogram. COMPLICATIONS: None. PROCEDURE: The patient was taken to the operating suite and was prepped and draped in sterile fashion. A surgical pause was performed. Just superior to the umbilicus, a 12 mm incision was made. Dissection was taken down to the fascia, which was then scored and grasped with a Keith and the abdomen was then entered at small umbilical hernia. A 0 Vicryl suture was placed in a [id number] fashion and a Porras trocar was placed and secured. Pneumoperitoneum was achieved. A 5mm trochar place in the subxyphoid and 2 in the right upper quadrant. The gallbladder was then grasped and elevated. Some adhesions up to the gallbladder/liver. These were taken down. The cystic duct, and cystic artery were then dissected out. Clip was placed on the distal portion of the cystic duct which was then partially transected. An arrow catheter was inserted into the duct. The cholangiogram was then performed. No filing defects and contrast made its way into the duodenum. Catheter removed. Clips were placed on proximal portion of the cystic duct and then the duct was then transected. Clips were placed along the proximal and distal portion of the cystic artery which was then transected. Hook cautery was used to dissect the gallbladder from the gallbladder fossa achieving hemostasis. The gallbladder was placed in an Endobag and removed through the 12 mm trocar site. The abdomen was then reinspected. Copious amounts of irrigation were used to irrigate the abdomen and there were no signs of active bleeding. Hemostasis had been achieved. The 12 mm fascial defect was then closed with 0 Vicryl suture that had been placed in a [id number] fashion. The abdomen was then desufflated, the trocars were removed. The abdomen was then washed and dried. The skin was then closed using 4-0 Monocryl in a subcuticular fashion. The abdomen was washed and dried and Skin Affix was place over incisions. Patient tolerated the procedure well without any complications and was taken to the recovery room in stable condition. Anesthesia Type general Estimated Blood Loss Estimated blood loss (mL): minimal Specimens/Packing Specimens Removed gallbladder TRACY SHELLEY DO Dec 17, 2020 08:58
[2020-12-17] MEDS ORDERED: DOCU-143 PO (08:59)
[2020-12-17] MEDS ORDERED: ACHD5005 PO (08:59)
--- NOTE | 2020-12-17 08:59 | Discharge Inst-Simple/Standard ---
Discharge Inst-Standard Discharge Medications New, Converted or Re-Newed RX: RX on Chart Patient Instructions/Follow Up Plan of Care/Instructions/FU: 2 weeks Shantell Activity as Tolerated: No Discharge Diet: Regular Diet Other Inst to Patient Follow up Appt: Make appointment for 2 weeks. Instructions: No lifting greater than 10 pounds. No strenuous activity. May shower in 24 hours, no tub bath or soaking. Use incentive spirometer at home as directed. No Smoking Skin/Wound Care: You have special glue over incision, it will fall off on it's own. Symptoms to Report: Appetite Changes, Extremity Discoloration, Numbness/Tingling, Swelling Increased, Bleeding Excessive, Eyesight Changes, Pain Increased, Urine Color Change, Constipation(Persistent), Fever over 101 degree F, Pain/Pressure in ches t, Urinating Difficulty, Cough Up/Vomit Blood, Heart Beat Irreg/Pounding, Pain/Pressure in jaw, Vaginal Bleeding Increase, Cramps in feet or legs, Lightheadedness, Pain/Pressure in shoulder, Diarrhea(Persistent), Memory Changes Suddenly, Questions/Concerns, Weight gain consecutive days, Dizziness/Fainting, Nausea/Vomiting, Shortness of Breath, Weight gain over 2 pounds. If eyes or skin turn yellow notify physician. If questions or concerns contact your physician Or seek help at emergency department. TRACY SHELLEY DO Dec 17, 2020 08:59
--- NOTE | 2020-12-17 09:14 | Anesthesia-General Post-Op ---
General Patient Condition Mental Status/LOC: Same as Preop Cardiovascular: Satisfactory Nausea/Vomiting: Absent Respiratory: Satisfactory Pain: Controlled Complications: Absent Post Op Complications Complications None Follow Up Care/Instructions Patient Instructions None needed. Anesthesia/Patient Condition Patient Condition Patient is doing well, no complaints, stable vital signs, no apparent adverse anesthesia problems. No complications reported per nursing. MIRYAM SARMIENTO CRNA Dec 17, 2020 09:14
[2020-12-17] MEDS ORDERED: ONDANSETRON 4 MG/2 ML (SDV) Z0FRAN IVP PRN (09:15)
[2020-12-17] MEDS ORDERED: HYDROmorphone 2 MG/ML VIAL (DILAUDID) IV ONE (09:15)
[2020-12-17] MEDS ORDERED: MEPERIDINE (DEMEROL) INJ 50 MG/ML IVP ONE (09:15)
[2020-12-17] MEDS ORDERED: fentaNYL INJECTION 100 MCG/2 ML AMP IVP ONE (09:15)
[2020-12-17] MEDS ORDERED: morphine INJ 10 MG/ML 1ML (SYR OR VIAL) IVP ONE (09:15)
[2020-12-17] MEDS ORDERED: HYDROcodone/APAP 5 MG/325 MG (LORTAB) TAB ONE (10:06)
[2020-12-17] MEDS ORDERED: HYDROcodone/APAP 5 MG/325 MG (LORTAB) TAB PO ONE (10:15)
[2020-12-17] MEDS ORDERED: ONDANSETRON 4 MG (ZOFRAN) ORAL DISSOLVE TAB ONE (11:12)
[2020-12-17] MEDS ORDERED: ONDANSETRON 4 MG (ZOFRAN) ORAL DISSOLVE TAB PO ONE (11:30)
--- NOTE | 2020-12-17 11:57 | Diagnostic Imaging Report ---
INDICATION: Fluoroscopy at 8:31 AM INDICATION: Laparoscopic cholecystectomy Fluoroscopic assistance was provided for Dr. Morris Stinson. 7.5 seconds of fluoroscopy time was obtained. 35 spot images of the right upper quadrant were received from the OR. There has been opacification of the common duct via a cystic duct catheter. The common bile duct does not seem to be dilated and there is no definite defect within the duct. There is extension of the contrast into the small bowel. IMPRESSION: Fluoroscopic assistance was provided for Dr. Stinson. Dictated by: Dictated on workstation # [id number]
== END 2020-12-17 11:45 ==
LOC: SDC 06:09
PROVIDERS: ATTEND Surgery
DX: K81.1 Chronic cholecystitis (principal); K82.8 Other specified diseases of gallbladder; K42.9 Umbilical hernia without obstruction or gangrene; Z79.899 Other long term (current) drug therapy; Z88.2 Allergy status to sulfonamides; Z88.1 Allergy status to other antibiotic agents
CPT/HCPCS: 76000; 84703; 87081

== ENCOUNTER → 2021-07-28 | Outpatient (CLI) | payer BC ==
[~2021-07-28] MED LIST changes: -DCS100C PO; +DOCU-143 PO; +DOCU-239 PO; +NORE0.3561 PO
--- NOTE | 2021-07-28 11:09 | Diagnostic Imaging Report ---
PROCEDURE: CT abdomen and pelvis with contrast. TECHNIQUE: Multiple contiguous axial images were obtained through the abdomen and pelvis after administration of intravenous contrast. Auto Exposure Controls were utilized during the CT exam to meet ALARA standards for radiation dose reduction. All CT scans use one or more of the following dose optimizing techniques: automated exposure control, MA and/or KvP adjustment based on patient size and exam type or iterative reconstruction. INDICATION: Upper abdominal pain COMPARISON: None FINDINGS: Lung bases are clear. The gallbladder surgically absent. Solid organs, vascular structures grossly unremarkable. There is a mild amount of free fluid in the pelvis which is likely physiologic. However, there are some nonspecific thickened small bowel loops which could be related to inflammatory bowel disease. There is no abscess, free air or overt obstruction. The appendix appears normal. The uterus and urinary bladder grossly unremarkable. Osseous structures are age-appropriate. IMPRESSION: 1. Mildly thickened loops of small bowel within the pelvis with small amount of free fluid possibly inflammatory bowel disease. The fluid also could be physiologic. Follow-up is recommended. 2. No free air, abscess, or bowel obstruction. 3. Surgically absent gallbladder. Dictated by: Dictated on workstation # [id number]
== END ==
LOC: RAD 09:48
PROVIDERS: ATTEND Internal Medicine
DX: R10.10 Upper abdominal pain, unspecified (principal); Z90.49 Acquired absence of other specified parts of digestive tract
CPT/HCPCS: 74177

== ENCOUNTER 2021-10-11 19:23 | Emergency (ER) | payer BC ==
[~2021-10-11] VITALS: Ht 171 cm; Wt 77.3 kg
--- NOTE | 2021-10-11 19:45 | ED Abdominal Pain ---
General Chief Complaint: Abdominal/GI Problems Stated Complaint: ABD/PELVIC PAIN Source of Information: Patient History of Present Illness Date Seen by Provider: Oct 11, 2021 Time Seen by Provider: 19:40 Initial Comments PT ARRIVES VIA POV FROM HOME C/O EPIGASTRIC PAIN AND SUPRAPUBIC PAIN X 5 DAYS PAIN IS CONSTANT NOTHING WORSENS OR IMPROVES PAIN C/O NAUSEA, WITH VOMITING X 1 ON Monday10/09/21--STATES SHE TOOK A PERCOCET ON AN EMPTY STOMACH AND NAUSEA AND EPISODE OF VOMITING BEGAN AFTER THAT. HAS NOT HAD ANY NAUSEA OR VOMITING BEFORE OR AFTER THAT EPISODE HAS NOT HAD A BM SINCE Monday10/08/21--AND WAS CONSTIPATED--STATES SHE NORMALLY HAS BM'S EVERY 2-3 DAYS PT HAS BEEN EATING AND DRINKING NORMALLY HAS SOME PRESSURE OVER BLADDER AND HAS OCCASIONAL SHARP STABBING PAINS IN URETHRAL AND GENITAL AREA HAS SLIGHT VAGINAL DISCHARGE NO ACTUAL PAIN OR BURNING ON URINATION LMP 09/22/21. NORMAL. ON OCP'S PT STATES SHE HAD A COLONOSCOPY IN 2014 AND 2016 AND WAS TOLD SHE POSSIBLY HAD ULCERATIVE COLITIS. WAS NOT TAKING ANY MEDICATIONS OR BEING FOLLOWED BY ADULT NEUROPSYCHOLOGIST SINCE THOSE STUDIES PT HAD CHOLECYSTECTOMY 11/[address] SCAN OF ABDOMEN IN OF THIS YEAR, AND WAS DX WITH CROHN'S BASED ON CT FINDINGS PT WAS THEN SEEN BY DR. MARTINO AT THAT TIME, AND STARTED ON PREDNISONE AND WAS REFERRED TO ADULT NEUROPSYCHOLOGIST--SAW DR. THOMPSON IN [place] FOR FIRST TIME 09/27/21 HE CONTINUED PREDNISONE DAILY. HAS A FOLLOW UP APPOINTMENT WITH DR. THOMPSON 10/18/[address] MARTINO SINCE HAS NOT TAKEN ANYTHING ELSE FOR SYMPTOMS PT HAS NOT HAD COVID-19 VACCINE NO KNOWN SICK CONTACTS DENIES ANY OTHER COVID SYMPTOMS PCP; DR. MARTINO GI: DR. THOMPSON IN [place] Allergies and Home Medications Allergies Coded Allergies: sulfamethoxazole (Verified Allergy, Mild, RASH, 12/17/20) trimethoprim (Verified Allergy, Mild, RASH, 12/17/20) Patient Home Medication List Home Medication List Reviewed: Yes Docusate Sodium (Colace) 100 Mg Capsule, 100 MG PO BID Prescribed by: TRACY SHELLEY on 12/17/20 0815 Hydrocodone/Acetaminophen (Hydrocodone-Acetamin 5-325 mg) 1 Each Tablet, 1 EACH PO Q4H PRN for PAIN-MODERATE (5-7) Prescribed by: TRACY SHELLEY on 12/17/20 0859 Norethindrone (Jencycla) 0.35 Mg Tablet, 0.35 MG PO, (Reported) Entered as Reported by: ANNE VALERO on 12/17/20 0644 Pantoprazole Sodium (Protonix) 40 Mg Tablet.dr, 40 MG PO DAILY Prescribed by: MARIA ELENA PADRON on 10/11/212147 Phenazopyridine HCl (Pyridium) 200 Mg Tablet, 1 TAB PO TID Prescribed by: MARIA ELENA PADRON on 10/11/212147 Vit W-Ca,Fe,FA(<1 mg) ( Formula) 1 Each Tablet, 1 EACH PO DAILY, (Reported) Entered as Reported by: NJ DOWELL on 02/11/20 1355 Review of Systems Review of Systems Constitutional: no symptoms reported Respiratory: No Symptoms Reported Cardiovascular: No Symptoms Reported Gastrointestinal: See HPI Genitourinary: See HPI Musculoskeletal: no symptoms reported Skin: no symptoms reported Psychiatric/Neurological: No Symptoms Reported Endocrine: No Symptoms Reported Hematologic/Lymphatic: No Symptoms Reported Past Otypszo-Xeolvv-Evioze Hx Patient Social History Tobacco Use?: No Use of E-Cig and/or Vaping dev: No Substance use?: No Alcohol Use?: Yes Alcohol Frequency: Several times a month Pt feels they are or have been: No Immunizations Up To Date PED Vaccines UTD: Yes Influenza Vaccine Up-to-Date: No; Not Current Seasonal Allergies Seasonal Allergies: No Past Medical History Surgeries: Yes (COLONOSCOPY) Section, Gallbladder Respiratory: No Currently Using CPAP: No Currently Using BIPAP: No Cardiac: No Neurological: No Female Reproductive Disorders: Denies Sexually Transmitted Disease: No HIV/AIDS: Yes Genitourinary: No Gastrointestinal: Yes (S/P QUETA) Colitis, Crohns Disease, Ulcer, Gall Bladder Disease Musculoskeletal: No Endocrine: No HEENT: Yes (CONTACTS) Loss of Vision: Denies Hearing Impairment: Denies Cancer: No Psychosocial: No Integumentary: No Blood Disorders: No Adverse Reaction/Blood Tranf: No (N/A) Family Medical History FH: stroke GRANDMOTHER M GRANDMOTHER P Hypertension GRANDMOTHER P No Pertinent Family Hx PAST SURGICAL HISTORY: -COLONOSCOPIES 2014 AND 2016 - 01/2020 -CHOLECYSTECTOMY 11/2020 Physical Exam Vital Signs Vital Signs - First Documented 10/11/21 10/11/21 19:30 22:53 Temp 36.4 Pulse 94 Resp 20 B/P (MAP) 110/70 Pulse Ox 100 Capillary Refill : Height/Weight/BMI Height: 5'6.00" Weight: 170lbs. 0.0oz. 77.756431qx; 26.74 BMI Method:Stated General Appearance: WD/WN, no apparent distress, other (FULL HEAVY MAKEUP, WALKS UPRIGHT AND MOVES WITHOUT DIFFICULTY, DOES NOT APPEAR TO BE IN ANY DISCOMFORT OR DISTRESS) Respiratory: normal breath sounds, no respiratory distress, no accessory muscle use Cardiovascular: regular rate, rhythm, no murmur Gastrointestinal: normal bowel sounds, soft, no organomegaly, no pulsatile mas s; No distended, No guarding, No rebound; tenderness (MILD EPIGASTRIC AND SUPRAPUBIC TENDERNESS. 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, no motor/sensory deficits, alert, normal mood/affect, oriented x 3 Skin: normal color, warm/dry; No rash Progress/Results/Core Measures Results/Orders Lab Results Laboratory Tests Test 10/11/21 19:30 10/11/21 20:00 10/11/21 20:39 Range/Units Urine Color YELLOW Urine Clarity CLEAR Urine pH 6.0 5-9 Urine Specific [place] 1.020 1.016-1.022 Urine Protein NEGATIVE NEGATIVE Urine Glucose (UA) NEGATIVE NEGATIVE Urine Ketones NEGATIVE NEGATIVE Urine Nitrite NEGATIVE NEGATIVE Urine Bilirubin NEGATIVE NEGATIVE Urine Urobilinogen 1.0 < = 1.0 MG/DL Urine Leukocyte Esterase NEGATIVE NEGATIVE Urine RBC (Auto) NEGATIVE NEGATIVE Urine RBC NONE /HPF Urine WBC 0-2 /HPF Urine Squamous Epithelial Cells 5-10 /HPF Urine Renal Epithelial Cells NONE /HPF Urine Crystals NONE /LPF Urine Bacteria FEW H /HPF Urine Casts NONE /LPF Urine Mucus NEGATIVE /LPF Urine Culture Indicated NO White Blood Count 7.2 4.3-11.0 10^3/uL Red Blood Count 3.90 3.80-5.11 10^6/uL Hemoglobin 10.0 L 11.5-16.0 g/dL Hematocrit 33 L 35-52 % Mean Corpuscular Volume 84 80-99 fL Mean Corpuscular Hemoglobin 26 25-34 pg Mean Corpuscular Hemoglobin Concent 31 L 32-36 g/dL Red Cell Distribution Width 14.8 H 10.0-14.5 % Platelet Count 509 H 130-400 10^3/uL Mean Platelet Volume 9.0 9.0-12.2 fL Immature Granulocyte % (Auto) 0 % Neutrophils (%) (Auto) 68 42-75 % Lymphocytes (%) (Auto) 19 12-44 % Monocytes (%) (Auto) 9 0-12 % Eosinophils (%) (Auto) 3 0-10 % Basophils (%) (Auto) 1 0-10 % Neutrophils # (Auto) 4.9 1.8-7.8 10^3/uL Lymphocytes # (Auto) 1.4 1.0-4.0 10^3/uL Monocytes # (Auto) 0.6 0.0-1.0 10^3/uL Eosinophils # (Auto) 0.2 0.0-0.3 10^3/uL Basophils # (Auto) 0.1 0.0-0.1 10^3/uL Immature Granulocyte # (Auto) 0.0 0.0-0.1 10^3/uL Erythrocyte Sedimentation Rate 53 H 0-20 MM/HR Sodium Level 138 135-145 MMOL/L Potassium Level 3.8 3.6-5.0 MMOL/L Chloride Level 102 98-107 MMOL/L Carbon Dioxide Level 23 21-32 MMOL/L Anion Gap 13 5-14 MMOL/L Blood Urea Nitrogen 8 7-18 MG/DL Creatinine 0.81 0.60-1.30 MG/DL Estimat Glomerular Filtration Rate 85 BUN/Creatinine Ratio 10 Glucose Level 97 70-105 MG/DL Calcium Level 9.2 8.5-10.1 MG/DL Corrected Calcium 9.5 8.5-10.1 MG/DL Total Bilirubin 0.3 0.1-1.0 MG/DL Aspartate Amino Transf (AST/SGOT) 13 5-34 U/L Alanine Aminotransferase (ALT/SGPT) 14 0-55 U/L Alkaline Phosphatase 99 40-136 U/L C-Reactive Protein High Sensitivity 8.86 H 0.00-0.50 MG/DL Total Protein 7.6 6.4-8.2 GM/DL Albumin 3.6 3.2-4.5 GM/DL Amylase Level 49 25-125 U/L Lipase 26 8-78 U/L Influenza Type A (RT-PCR) Not Detected Not Detecte Influenza Type B (RT-PCR) Not Detected Not Detecte SARS-CoV-2 RNA (RT-PCR) Not Detected Not Detecte My Orders Orders - MARIA ELENA PADRON DO Ed Iv/Invasive Line Start (10/11/21 19:45) Urine Bedside (10/11/21 19:45) Amylase (10/11/21 19:45) Cbc With Automated Diff (10/11/21:45) Comprehensive Metabolic Panel (10/11/21:45) Lipase (10/11/21 19:45) Ua Culture If Indicated (10/11/21:45) Ed Iv/Invasive Line Start (10/11/21 19:53) Lactated Ringers (Lr 1000 Ml Iv Solution (10/11/21 20:00) Ketorolac Injection (Toradol Injection) (10/11/21 19:53) Ct Abd/Pelv W (Appendicitis) (10/11/21 19:53) Iohexol Injection (Omnipaque 350 Mg/Ml 1 (10/11/21 20:15) Received Contrast (Hold Metformin- Contr (10/11/21 20:15) Ns (Ivpb) (Sodium Chloride 0.9% Ivpb Bag (10/11/21 20:15) Covid 19 Inhouse Test (10/11/21 20:51) Influenza A And B By Pcr (10/11/21 20:51) Isolation Central Supply Req (10/11/21 20:51) Hs C Reactive Protein (10/11/21 21:31) Erythrocyte Sedimentation Rate (10/11/21 21:31) Pantoprazole Tablet (Protonix Tablet) (10/11/21 21:45) Phenazopyridine Tablet (Pyridium Tablet) (10/11/21 21:45) Medications Given in ED Current Medications Medications Dose Ordered Sig/Tiarra Route Start Time Stop Time Status Last Admin Dose Admin Iohexol 100 ml ONCE ONCE IV 10/11/21 20:15 10/11/21 20:16 DC 10/11/21 21:19 97 ML Lactated Ringer's 1,000 ml @ 0 mls/hr Q0M ONCE IV 10/11/21 20:00 10/11/21 20:01 DC 10/11/21 20:24 1,000 MLS/HR Pantoprazole Sodium 40 mg ONCE ONCE PO 10/11/21 21:45 10/11/21 21:46 DC 10/11/21 22:11 40 MG Phenazopyridine HCl 200 mg ONCE ONCE PO 10/11/21 21:45 10/11/21 21:46 DC 10/11/21 22:12 200 MG Sodium Chloride 100 ml ONCE ONCE IV 10/11/21 20:15 10/11/21 20:16 DC 10/11/21 21:19 80 ML Vital Signs/I&O 10/11/21 10/11/21 19:30 22:53 Temp 36.4 Pulse 94 71 Resp 20 20 B/P (MAP) 110/70 Pulse Ox 100 97 Progress Progress Note : Progress Note UNEVENTFUL ER STAY GIVEN IV FLUIDS AND TORADOL WITH IMPROVEMENT IN PAIN GIVEN PROTONIX AND PYRIDIUM DISCUSSED ADDITIONAL TESTING INCLUDING PELVIC EXAM TO R/O SUPERVISOR ROLLING ROOM CAUSE FOR PAIN, PT DECLINES THIS TONIGHT AND STATES SHE WILL FOLLOW UP WITH DR. ANN'S OFFICE FOR THIS. ALSO DISCUSSED POSSIBLE NEED FOR ADDITIONAL OUTPATIENT TESTING INCLUDING EGD, CYSTOSCOPY/UROLOGICAL STUDIES, ETC AND PT OPTS TO FOLLOW UP WITH HER PCP FOR THIS PT HAS APPOINTMENT WITH GI ON 10/18/[address] ABDOMEN/PELVIS--PER RADIOLOGIST REPORT AT 2129 FINDINGS: The heart size is normal. There does appear to be a pericardial effusion in the lung bases are otherwise clear. The liver is normal in size and without focal lesions. Gallbladder is surgically absent. There is no biliary ductal dilatation. The spleen is normal. The pancreas, adrenal glands and kidneys are unremarkable. The aorta is nonaneurysmal. The bowel gas pattern is nonspecific. The appendix is normal. There is a small amount of free pelvic fluid. The possibility of an ovarian cyst cannot be excluded. Bladder is normal. The osseous structures are unremarkable. IMPRESSION: Small pericardial effusion. Recommend clinical correlation and, if warranted, follow-up with echocardiogram. Normal appendix. Small amount of free pelvic fluid with questionable ovarian cyst. The possibility of a ruptured cyst cannot be excluded. Recommend clinical correlation and, if warranted, follow up with pelvic ultrasound Departure Impression Primary Impression: Epigastric abdominal pain Additional Impression: Suprapubic abdominal pain Disposition: HOME, SELF-CARE Condition: Improved Departure-Patient Inst. Decision time for Depature: :45 Referrals: PINA ANN JOHN D MD (PCP/Family) Primary Care Physician Patient Instructions: Abdominal Pain, Adult ED Add. Discharge Instructions: CLEAR LIQUIDS--WATER, BROTH, JELLO, GATORADE BRATS DIET--BANANAS, RICE, APPLESAUCE, TOAST, SALTINES FOLLOW UP WITH DR. ANN THIS WEEK FOR FURTHER SUPERVISOR ROLLING ROOM EVALUATION FOLLOW UP WITH DR. MARTINO THIS WEEK FOR FURTHER EVALUATION OF ABDOMINAL PAIN All discharge instructions reviewed with patient and/or family. Voiced understanding. Scripts Phenazopyridine HCl (Pyridium) 200 Mg Tablet 1 TAB PO TID, #15 TAB Prov: MARIA ELENA PADRON DO 10/11/21 Pantoprazole Sodium (Protonix) 40 Mg Tablet. 40 MG PO DAILY, #15 TAB Prov: ELIUD PADRONA K DO 10/11/21 NEREIDAMARIA ELENA K DO Oct 11, 2021 19:45
[2021-10-11] MEDS ORDERED: KETOROLAC 30 MG/ML VIAL IVP STA (19:53)
[2021-10-11 19:54] LABS: BILIRUBIN,URINE NEGATIVE (NEGATIVE); CLARITY,URINE CLEAR; COLOR,URINE YELLOW; GLUCOSE, URINE (UA) NEGATIVE (NEGATIVE); KETONES,URINE NEGATIVE (NEGATIVE); LEUKOCYTE ESTERASE ,URINE NEGATIVE (NEGATIVE); NITRITE,URINE NEGATIVE (NEGATIVE); PROTEIN,URINE NEGATIVE (NEGATIVE)
[2021-10-11] MEDS ORDERED: LACTATED RINGERS 1,000 ML IV ONE (20:00)
[2021-10-11 20:06] LABS: BASOPHILS # (AUTO) 0.1 10^3/uL (0.0-0.1); BASOPHILS % (AUTO) 1 % (0-10); EOSINOPHILS # (AUTO) 0.2 10^3/uL (0.0-0.3); EOSINOPHILS % (AUTO) 3 % (0-10); HEMATOCRIT 33 % (35-52); LYMPHOCYTES # (AUTO) 1.4 10^3/uL (1.0-4.0); LYMPHOCYTES % (AUTO) 19 % (12-44); MEAN CORPUSCULAR HEMOGLOBIN 26 pg (25-34); MEAN CORPUSCULAR HGB CONC 31 g/dL (32-36); MEAN CORPUSCULAR VOLUME 84 fL (80-99); MONOCYTES # (AUTO) 0.6 10^3/uL (0.0-1.0); MONOCYTES % (AUTO) 9 % (0-12); NEUTROPHILS # (AUTO) 4.9 10^3/uL (1.8-7.8); NEUTROPHILS % (AUTO) 68 % (42-75); PLATELET COUNT 509 10^3/uL (130-400); WHITE BLOOD COUNT 7.2 10^3/uL (4.3-11.0)
[2021-10-11 20:08] LABS: BACTERIA,URINE FEW /HPF; WBC,URINE 0-2 /HPF
[2021-10-11] MEDS ORDERED: HOLD METFORMIN - RECEIVED CONTRAST 20 ML VIAL IV SCH (20:15)
[2021-10-11] MEDS ORDERED: IOHEXOL 350 MG/ML 100 ML (OMNIPAQUE 350) VIAL IV ONE (20:15)
[2021-10-11] MEDS ORDERED: NS 100 ML (IVPB) BAG IV ONE (20:15)
[2021-10-11 20:25] LABS: ALBUMIN 3.6 GM/DL (3.2-4.5); BILIRUBIN,TOTAL 0.3 MG/DL (0.1-1.0); CALCIUM 9.2 MG/DL (8.5-10.1); CREATININE SERUM 0.81 MG/DL (0.60-1.30); POTASSIUM 3.8 MMOL/L (3.6-5.0); TOTAL PROTEIN 7.6 GM/DL (6.4-8.2)
--- NOTE | 2021-10-11 21:29 | Diagnostic Imaging Report ---
PROCEDURE: CT abdomen and pelvis with contrast, rule out appendicitis. TECHNIQUE: Multiple contiguous axial images were obtained through the abdomen and pelvis after the administration of intravenous contrast. All CT scans use one or more of the following dose optimizing techniques: automated exposure control, MA and/or KvP adjustment based on patient size and exam type or iterative reconstruction. INDICATION: Right right lower quadrant pain. FINDINGS: The heart size is normal. There does appear to be a pericardial effusion in the lung bases are otherwise clear. The liver is normal in size and without focal lesions. Gallbladder is surgically absent. There is no biliary ductal dilatation. The spleen is normal. The pancreas, adrenal glands and kidneys are unremarkable. The aorta is nonaneurysmal. The bowel gas pattern is nonspecific. The appendix is normal. There is a small amount of free pelvic fluid. The possibility of an ovarian cyst cannot be excluded. Bladder is normal. The osseous structures are unremarkable. IMPRESSION: Small pericardial effusion. Recommend clinical correlation and, if warranted, follow-up with echocardiogram. Normal appendix. Small amount of free pelvic fluid with questionable ovarian cyst. The possibility of a ruptured cyst cannot be excluded. Recommend clinical correlation and, if warranted, follow up with pelvic ultrasound Dictated by: Dictated on workstation # [id number]
[2021-10-11] MEDS ORDERED: PANTOPRAZOLE 40 MG (PROTONIX) TAB PO ONE (21:45)
[2021-10-11] MEDS ORDERED: PHENAZOPYRIDINE 100 MG (PYRIDIUM) TABLET PO ONE (21:45)
[2021-10-11] MEDS ORDERED: PHEN-640 PO (21:48)
[2021-10-11] MEDS ORDERED: PANT40TA2 PO (21:48)
[2021-10-11 22:53] VITALS: BP 110/70
== END 2021-10-11 22:54 | disposition home or self-care (01) ==
LOC: EDUNIT# 19:23 → ER 19:25
DX: R10.13 Epigastric pain (principal); Z20.822 Contact with and (suspected) exposure to COVID-19
CPT/HCPCS: 36415; 74177; 80053; 81000; 82150; 83690; 84703; 85025; 85652; 86141; 87636